=== PATIENT | female | born 1955 | race Caucasian/White ===

== ENCOUNTER 2017-02-21 18:00 | Inpatient (IN) | payer MEDICAID ==
[2017-02-21 18:28] LABS: Hematocrit 46.9 % (30.3-42.9); Hemoglobin 15.1 gm/dl (10.1-14.3); Mean Corpuscular HGB Conc 32 % (30-34); Mean Corpuscular Hemoglobin 29 pg (28-32); Mean Corpuscular Volume 89 fl (79-97); Platelet Count 342 K/mm3 (140-440); Red Blood Count 5.27 M/mm3 (3.65-5.03); Red Cell Distribution Width 16.2 % (13.2-15.2); White Blood Count 14.5 K/mm3 (4.5-11.0)
--- NOTE | 2017-02-21 18:34 | Emergency Department Report ---
HPI - General Chief Complaint: Altered Mental Status Time Seen by Provider: 02/21/17 18:25 - HPI HPI: 61-year-old Afro-[place]ux[place]bour[place] female with a history of schizophrenia, Parkinson's and dementia presents to the emergency department after being found unresponsive at [facility]. The patient apparently left her personal skilled nursing along with a walker and 2 large bags and walked [facility]. The patient allegedly was ambulatory, jovial and social with the workers at [facility]. She ordered her food and ate and then all of a sudden about 1.5 hours ago she was found face down unresponsive at her table. She is currently sitting there with eyes open but is nonverbal and nonresponsive to verbal stimuli or any cues. She did not receive anything for symptoms in route. ED Past Medical Hx - Past Medical History Hx Psychiatric Treatment: Yes Hx Dementia: Yes Additional medical history: parkinsons - Surgical History Past Surgical History?: Yes Hx Breast Surgery: Yes (right mastectomy) Additional Surgical History: bladimir - Social History Smoking Status: Unknown if ever smoked ED Review of Systems ROS: Stated complaint: AMS Other details as noted in HPI Comment: Unobtainable due to pts medical conditions Physical Exam - Physical Exam Physical Exam: GENERAL: The patient is well-developed well-nourished. HEENT: Normocephalic. Atraumatic. Pupils equal reactive to light bilaterally. Patient does not display any extraocular motion and is not tracking. Patient has moist mucous membranes. NECK: Supple. Trachea is midline. CHEST/LUNGS: Clear to auscultation. There is no respiratory distress noted. HEART/CARDIOVASCULAR: Regular. There is no tachycardia. There is no gallop rub or murmur. ABDOMEN: Abdomen is soft, nontender. Patient has normal bowel sounds. There is no abdominal distention. SKIN: Skin is warm and dry. NEURO: The patient is awake with her eyes spontaneously open but she is nonverbal and noncooperative. She does not follow any verbal commands or acute. Patient seen spontaneously moving her extremities. No obvious lateralization. She does withdraw from painful stimuli. MUSCULOSKELETAL: There is no tenderness or deformity. Radial pulse was 2 over 4 bilaterally. Cap refill less than 2 seconds. There is no evidence of acute injury. ED Course - Consultations Consultation #1: I spoke with the telemedicine neurologist, Dr. Lay, regarding the patient's altered mental status and possible strokelike symptoms. He saw the patient in the room via telemedicine monitor and called back. He feels that the patient has more encephalopathic symptoms then she does lateralizing stroke symptoms. He would recommend a CT angiography of the head and neck but due to her renal insufficiency recommends admission and MRA without contrast. He does not feel that the patient is a TPA candidate. 02/21/17 19:29 02/21/17 19:31 - ABG Interpretation Ph: [phone] PCO2: 23 PO2: 57 Bicarbonate: 15 Interpretation: other (low bicarbonate and hypoxia) ED Medical Decision Making - Lab Data Result diagrams: 02/21/17 18:12 02/21/17 18:30 - EKG Data -: EKG Interpreted by Me EKG shows normal: sinus rhythm (junctional rhythm), axis (left axis deviation), intervals, QRS complexes (LVH, Q waves to the anterior and inferior leads), ST- T waves Rate: normal - EKG Data When compared to previous EKG there are: previous EKG unavailable Interpretation: other (social rhythm, left axis deviation, 88 bpm, left ventricular hypertrophy, Q waves inferior and anterior leads) - Radiology Data Radiology results: report reviewed, image reviewed interpreted by me: Chest x-ray did not show any acute process. No effusions. No pneumothorax. No signs of pneumonia seen. PROCEDURE: CT HEAD/BRAIN WO CON TECHNIQUE: Computerized tomography of the head was performed without contrast material. HISTORY: AMS COMPARISON: No prior studies are available for comparison. FINDINGS: Skull and scalp: Hyperostosis frontalis internus Paranasal sinuses: Hypoplastic right maxillary sinus. Ventricles and subarachnoid spaces: Normal. Cerebrum: On images 35-38 there is questionable effacement of sulcal spaces and haziness or indistinctness of the joya white junctions high right temporal into the parietal lobe asymmetric to the left side such as image 36 could reflect region of acute or hyperacute ischemic change. Followup MRI is advised.. No acute intracranial bleed. Mild diffuse atrophy with mild periventricular microischemic change and with suspected central lacunar infarct disease. Cerebellum and brainstem: No evidence of hemorrhage, acute infarction or mass. Vasculature: Mild fairly symmetric atherosclerosis of the bilateral MCA branch vessels at the M1 and M2 levels with nonspecific asymmetric moderate increased density appearance of the right sylvian MCA branch involving the M3 segment. This is indeterminate to exclude regional partially hyperdense hyperdense MCA sign images 22 through 24. Followup MRI with MRA may be of use to further evaluate. Comments: Focal upper parafalcine dural calcification. No prior CT head on file or submitted on PACs for this 61-year-old female IMPRESSION: Rule-out partial hyperdense MCA sign right at the right M3 segment. Consider partial peripheral MCA thrombus versus asymmetric and fortuitous atherosclerotic prominence. Followup MRA is advised Rule-out subtle acute or hyperacute ischemic changes of the distal right middle cerebral artery distribution as above. Followup MRI is advised - Medical Decision Making 61-year-old female presents the emergency department after being found unresponsive at [facility]. However since the patient was previously verbal and ambulatory at [facility], when the patient arrived to the emergency department I called a code stroke. CT of the head was done stat that showed a hyperdense MCA segment and rule out subtle acute or hyperacute ischemic changes. The telemedicine neurologist was consult and saw the patient in her room via the monitor and called back and says that the patient does not appear to be a TPA candidate and that she is more encephalopathic then lateralizing CVA symptoms. Labs show a elevated lactic acidosis, some renal insufficiency, leukocytosis and an ABG that shows some decreased bicarbonate level and some hypoxia. Originally the neurologist had recommended a CT angiography of the head and neck but once he understood the patient's renal insufficiency he recommended admitting the patient for a follow-up MRA/MRI. Patient was reevaluated multiple times over multiple hours in the emergency department and she started showing improvements. She was seen awake and verbal trying to talk with her daughter but even the daughter agreed that there was something off in her speech and demeanor. Patient was already going to be admitted at this point but the improvement once again shows that the patient was most likely not a TPA candidate. Patient accepted for admission by the hospitalist, Dr. Blanton. - Differential Diagnosis CVA, encephalopathy, DKA, hypertensive crisis Critical Care Time: No Critical care attestation.: If time is entered above; I have spent that time in minutes in the direct care of this critically ill patient, excluding procedure time. ED Disposition Clinical Impression: Encephalopathy, Lactic acidosis, Hyperglycemia Altered mental status Qualifiers: Altered mental status type: transient alteration of awareness Qualified Code(s) : R40.4 - Transient alteration of awareness Hypertension Qualifiers: Hypertension type: essential hypertension Qualified Code(s): I10 - Essential ( primary) hypertension Disposition: DC-09 OP ADMIT IP TO THIS HOSP Is pt being admited?: Yes Condition: Fair Time of Disposition: 20:31
[2017-02-21 19:07] LABS: Albumin 4.4 g/dL (3.9-5); Albumin/Globulin Ratio 1.2 %; BUN/Creatinine Ratio 11.42; Bilirubin,Total 0.5 mg/dL (0.1-1.2); Calcium 10.4 mg/dL (8.4-10.2); Chloride 102.5 mmol/L (98-107); Magnesium 2.3 mg/dL (1.7-2.3); Potassium 5.1 mmol/L (3.6-5.0)
--- NOTE | 2017-02-21 19:09 | Cat Scan Report ---
FINAL REPORT PROCEDURE: CT HEAD/BRAIN WO CON TECHNIQUE: Computerized tomography of the head was performed without contrast material. HISTORY: AMS COMPARISON: No prior studies are available for comparison. FINDINGS: Skull and scalp: Hyperostosis frontalis internus Paranasal sinuses: Hypoplastic right maxillary sinus. Ventricles and subarachnoid spaces: Normal. Cerebrum: On images 35-38 there is questionable effacement of sulcal spaces and haziness or indistinctness of the joya white junctions high right temporal into the parietal lobe asymmetric to the left side such as image 36 could reflect region of acute or hyperacute ischemic change. Followup MRI is advised.. No acute intracranial bleed. Mild diffuse atrophy with mild periventricular microischemic change and with suspected central lacunar infarct disease. Cerebellum and brainstem: No evidence of hemorrhage, acute infarction or mass. Vasculature: Mild fairly symmetric atherosclerosis of the bilateral MCA branch vessels at the M1 and M2 levels with nonspecific asymmetric moderate increased density appearance of the right sylvian MCA branch involving the M3 segment. This is indeterminate to exclude regional partially hyperdense hyperdense MCA sign images 22 through 24. Followup MRI with MRA may be of use to further evaluate. Comments: Focal upper parafalcine dural calcification. No prior CT head on file or submitted on PACs for this 61-year-old female IMPRESSION: Rule-out partial hyperdense MCA sign right at the right M3 segment. Consider partial peripheral MCA thrombus versus asymmetric and fortuitous atherosclerotic prominence. Followup MRA is advised Rule-out subtle acute or hyperacute ischemic changes of the distal right middle cerebral artery distribution as above. Followup MRI is advised Followup MRI and MRA as above is advised if not contraindicated Full details above
[2017-02-21 19:11] LABS: INR 1.04 (0.87-1.13)
[2017-02-21 19:12] LABS: Partial Thromboplastin Time 32.7 Sec. (24.2-36.6)
[2017-02-21 19:17] LABS: Basophils % (Manual) 0 % (0.0-1.8); Blastocytes % (Manual) 0 %; Diff Status Complete; Eosinophils % (Manual) 0 % (0.0-4.3); RBC Morphology Normal
[2017-02-21] MEDS ORDERED: NORMODYNE IV ONE (19:30)
[2017-02-21 19:39] LABS: ISTAT Base Excess -9; ISTAT HCO3 15.3; ISTAT PCO2 23.5 (35-45); ISTAT PH 7.422 (7.35-7.45); ISTAT PO2 57 (80-105); ISTAT SO2 91; ISTAT TCO2 16
[2017-02-21] MEDS ORDERED: DILAUDID IV PRN (21:37)
[2017-02-21] MEDS ORDERED: PERCOCET 5/325 PO PRN (21:37)
[2017-02-21] MEDS ORDERED: MILK OF MAGNESIA PO PRN (21:37)
[2017-02-21] MEDS ORDERED: DULCOLAX PR PRN (21:37)
[2017-02-21] MEDS ORDERED: ZOFRAN IV PRN (21:37)
--- NOTE | 2017-02-21 21:37 | History and Physical Report ---
History of Present Illness Date of examination: 02/21/17 Date of admission: 02/21/17 20:31 Chief complaint: Unresponsive for 1 hr History of present illness: RICHIE: 61-year-old Afro-Irish female with a history of schizophrenia, Parkinson's and dementia presents to the emergency department after being found unresponsive at [facility]. The patient apparently left her personal jail along with a walker and 2 large bags and walked [facility]. The patient allegedly was ambulatory, jovial and social with the workers at [facility]. She ordered her food and ate and then all of a sudden about 1.5 hours ago she was found face down unresponsive at her table. She is currently sitting there with eyes open but is nonverbal and nonresponsive to verbal stimuli or any cues. She did not receive anything for symptoms in route. Past Medical History Hx Psychiatric Treatment: Yes Hx Dementia: Yes Additional medical history: parkinsons - Surgical History Past Surgical History?: Yes Hx Breast Surgery: Yes (right mastectomy) Additional Surgical History: bladimir - Social History Smoking Status: Unknown if ever smoked Review of Systems Stated complaint: AMS Unobtainable due to pts medical conditions Medications and Allergies Allergies Allergy/AdvReac Type Severity Reaction Status Date / Time morphine Allergy Unknown Verified 02/21/17 18:06 Active Meds: Active Medications Heparin Sodium (Porcine) (Heparin) 5,000 unit SUB-Q Q8HR HATTIE Exam - Physical Exam Narrative exam: Lying in bed and staring at the ceiling - Constitutional Vitals: Temp Pulse Resp BP Pulse Ox 98.3 F 66 12 126/79 99 02/21/17 18:56 02/21/17 21:15 02/21/17 21:15 02/21/17 21:15 02/21/17 21:15 General appearance: Present: no acute distress, well-nourished - EENT Eyes: Present: PERRL ENT: hearing intact, clear oral mucosa - Neck Neck: Present: supple, normal ROM - Respiratory Respiratory effort: normal Respiratory: bilateral: CTA - Cardiovascular Heart rate: 80 Rhythm: regular Heart Sounds: Present: S1 & S2. Absent: rub, click - Extremities Extremities: no ischemia, pulses intact, pulses symmetrical, No edema Peripheral Pulses: within normal limits - Abdominal General gastrointestinal: Present: soft, non-tender, non-distended, normal bowel sounds Female genitourinary: Present: normal - Rectal Rectal Exam: deferred - Integumentary Integumentary: Present: clear, warm, dry - Musculoskeletal Musculoskeletal: strength equal bilaterally, generalized weakness - Psychiatric Psychiatric: appropriate mood/affect, intact judgment & insight - Neurologic Neurologic: CNII-XII intact, moves all extremities, other (Non verbal buut alert and able to pull herself in bed) Results - Labs CBC & Chem 7: 02/22/17 03:39 02/22/17 03:39 Labs: Laboratory Last Values WBC 14.5 K/mm3 (4.5-11.0) H 02/21/17 18:12 RBC 5.27 M/mm3 (3.65-5.03) H 02/21/17 18:12 Hgb 15.1 gm/dl (10.1-14.3) H 02/21/17 18:12 Hct 46.9 % (30.3-42.9) H 02/21/17 18:12 MCV 89 fl (79-97) 02/21/17 18:12 MCH 29 pg (28-32) 02/21/17 18:12 MCHC 32 % (30-34) 02/21/17 18:12 RDW 16.2 % (13.2-15.2) H 02/21/17 18:12 Plt Count 342 K/mm3 (140-440) 02/21/17 18:12 Lymph # Auto Inspector 02/21/17 18:12 Add Manual Diff Complete 02/21/17 18:12 Total Counted 100 02/21/17 18:12 Seg Neuts % (Manual) 57.0 % (40.0-70.0) 02/21/17 18:12 Band Neutrophils % 0 % 02/21/17 18:12 Lymphocytes % (Manual) 33.0 % (13.4-35.0) 02/21/17 18:12 Reactive Lymphs % (Man) 0 % 02/21/17 18:12 Monocytes % (Manual) 10.0 % (0.0-7.3) H 02/21/17 18:12 Eosinophils % (Manual) 0 % (0.0-4.3) 02/21/17 18:12 Basophils % (Manual) 0 % (0.0-1.8) 02/21/17 18:12 Metamyelocytes % 0 % 02/21/17 18:12 Myelocytes % 0 % 02/21/17 18:12 Promyelocytes % 0 % 02/21/17 18:12 Blast Cells % 0 % 02/21/17 18:12 Nucleated RBC % Not Reportable 02/21/17 18:12 Seg Neutrophils # Man 8.3 K/mm3 (1.8-7.7) H 02/21/17 18:12 Band Neutrophils # 0.0 K/mm3 02/21/17 18:12 Lymphocytes # (Manual) 4.8 K/mm3 (1.2-5.4) 02/21/17 18:12 Abs React Lymphs (Man) 0.0 K/mm3 02/21/17 18:12 Monocytes # (Manual) 1.5 K/mm3 (0.0-0.8) H 02/21/17 18:12 Eosinophils # (Manual) 0.0 K/mm3 (0.0-0.4) 02/21/17 18:12 Basophils # (Manual) 0.0 K/mm3 (0.0-0.1) 02/21/17 18:12 Metamyelocytes # 0.0 K/mm3 02/21/17 18:12 Myelocytes # 0.0 K/mm3 02/21/17 18:12 Promyelocytes # 0.0 K/mm3 02/21/17 18:12 Blast Cells # 0.0 K/mm3 02/21/17 18:12 WBC Morphology Not Reportable 02/21/17 18:12 Hypersegmented Neuts Not Reportable 02/21/17 18:12 Hyposegmented Neuts Not Reportable 02/21/17 18:12 Hypogranular Neuts Not Reportable 02/21/17 18:12 Smudge Cells Not Reportable 02/21/17 18:12 Toxic Granulation Not Reportable 02/21/17 18:12 Toxic Vacuolation Not Reportable 02/21/17 18:12 Dohle Bodies Not Reportable 02/21/17 18:12 Pelger-Huet Anomaly Not Reportable 02/21/17 18:12 Zoran Rods Not Reportable 02/21/17 18:12 Platelet Estimate Appears normal 02/21/17 18:12 Clumped Platelets Not Reportable 02/21/17 18:12 Plt Clumps, EDTA Not Reportable 02/21/17 18:12 Large Platelets Not Reportable 02/21/17 18:12 Giant Platelets Not Reportable 02/21/17 18:12 Platelet Satelliting Not Reportable 02/21/17 18:12 Plt Morphology Comment Not Reportable 02/21/17 18:12 RBC Morphology Normal 02/21/17 18:12 Dimorphic RBCs Not Reportable 02/21/17 18:12 Polychromasia Not Reportable 02/21/17 18:12 Hypochromasia Not Reportable 02/21/17 18:12 Poikilocytosis Not Reportable 02/21/17 18:12 Anisocytosis Not Reportable 02/21/17 18:12 Microcytosis Not Reportable 02/21/17 18:12 Macrocytosis Not Reportable 02/21/17 18:12 Spherocytes Not Reportable 02/21/17 18:12 Pappenheimer Bodies Not Reportable 02/21/17 18:12 Sickle Cells Not Reportable 02/21/17 18:12 Target Cells Not Reportable 02/21/17 18:12 Tear Drop Cells Not Reportable 02/21/17 18:12 Ovalocytes Not Reportable 02/21/17 18:12 Helmet Cells Not Reportable 02/21/17 18:12 [place] Bodies Not Reportable 02/21/17 18:12 [place] Rings Not Reportable 02/21/17 18:12 Salome Cells Not Reportable 02/21/17 18:12 Bite Cells Not Reportable 02/21/17 18:12 Crenated Cell Not Reportable 02/21/17 18:12 Elliptocytes Not Reportable 02/21/17 18:12 Acanthocytes (Spur) Not Reportable 02/21/17 18:12 Rouleaux Not Reportable 02/21/17 18:12 Hemoglobin C Crystals Not Reportable 02/21/17 18:12 Schistocytes Not Reportable 02/21/17 18:12 Malaria parasites Not Reportable 02/21/17 18:12 Richard Bodies Not Reportable 02/21/17 18:12 Hem Pathologist Commnt No 02/21/17 18:12 PT 13.5 Sec. (12.2-14.9) 02/21/17 18:30 INR 1.04 (0.87-1.13) 02/21/17 18:30 APTT 32.7 Sec. (24.2-36.6) 02/21/17 18:30 POC ABG pH 7.422 (7.35-7.45) 02/21/17 19:29 POC ABG pCO2 23.5 (35-45) L 02/21/17 19:29 POC ABG pO2 57 (80-105) L 02/21/17 19:29 POC ABG HCO3 15.3 02/21/17 19:29 POC ABG Total CO2 16 02/21/17 19:29 POC ABG O2 Sat 91 02/21/17 19:29 POC ABG Base Excess -9 02/21/17 19:29 FiO2 32 % 02/21/17 19:29 Sodium 142 mmol/L (137-145) 02/21/17 18:30 Potassium 5.1 mmol/L (3.6-5.0) H 02/21/17 18:30 Chloride 102.5 mmol/L (98-107) 02/21/17 18:30 Carbon Dioxide 19 mmol/L (22-30) L 02/21/17 18:30 Anion Gap 26 mmol/L 02/21/17 18:30 BUN 16 mg/dL (7-17) 02/21/17 18:30 Creatinine 1.4 mg/dL (0.7-1.2) H 02/21/17 18:30 Estimated GFR 38 ml/min 02/21/17 18:30 BUN/Creatinine Ratio 11.42 % 02/21/17 18:30 Glucose 273 mg/dL (65-100) H 02/21/17 18:30 POC Glucose 334 (70-105) H 02/21/17 19:15 Lactic Acid 5.20 mmol/L (0.7-2.0) H* 02/21/17 19:36 Calcium 10.4 mg/dL (8.4-10.2) H 02/21/17 18:30 Magnesium 2.30 mg/dL (1.7-2.3) 02/21/17 18:30 Total Bilirubin 0.50 mg/dL (0.1-1.2) 02/21/17 18:30 AST 23 units/L (5-40) 02/21/17 18:30 ALT 24 units/L (7-56) 02/21/17 18:30 Alkaline Phosphatase 122 units/L (35-129) 02/21/17 18:30 Ammonia 60.0 umol/L (25-60) 02/21/17 18:30 Total Creatine Kinase 119 units/L (30-135) 02/21/17 19:36 Total Protein 8.0 g/dL (6.3-8.2) 02/21/17 18:30 Albumin 4.4 g/dL (3.9-5) 02/21/17 18:30 Albumin/Globulin Ratio 1.2 % 02/21/17 18:30 TSH 4.100 mlU/mL (0.270-4.200) 02/21/17 18:30 Salicylates < 0.3 mg/dL (2.8-20.0) L 02/21/17 18:12 Acetaminophen < 15.0 ug/mL (10.0-30.0) 02/21/17 18:12 Plasma/Serum Alcohol < 0.01 gm% (0-0.07) 02/21/17 18:12 - Imaging and Cardiology EKG: report reviewed CT Scan - head: report reviewed (Rule out partial hyperdense MCA sign right M3 segment.Consider partial peripheral MCA thrombus versus asymmetric and fortuitous atherosclerotic prominence.Rule out subtle acute or hyperacute changes Rt MCAdistribution) Assessment and Plan Advance Directives: Yes (Full code) VTE prophylaxis?: Chemical Plan of care discussed with patient/family: No - Patient Problems (1) Encephalopathy Current Visit: Yes Status: Acute Plan to address problem: Etio unclear.ACute CVA versus sepsis.Able to move all 4 extremities.Will Get MRI and MRA b/c of abnormal CT Head .Empiric ABx in the form of Rocephin b/c of better Blood brain barrier penetration.DDX -I would consider meningitis as a possibility (2) Acidosis, lactic Current Visit: Yes Status: Acute Plan to address problem: Iv Rocephin for now For possible meningitis (3) CVA (cerebral vascular accident) Current Visit: Yes Status: Acute Qualifiers: CVA mechanism: thrombosis Precerebral and cerebral artery: middle cerebral artery Laterality of affected vessel: L Plan to address problem: Unlikely but w/u for CVA ordered in the form of MRI/MRA/CDS/ECHO.Also Neuro consult ordered (4) Sepsis Current Visit: Yes Status: Acute Qualifiers: Sepsis type: sepsis due to unspecified organism Qualified Code(s): A41.9 - Sepsis, unspecified organism Plan to address problem: A possiibility.Rocephin ordered (5) MARIBEL (acute kidney injury) Current Visit: Yes Status: Acute Plan to address problem: Her baseline creatinine is not known.IV fluids for time being (6) Transaminitis Current Visit: Yes Status: Acute Plan to address problem: Ischemic??Hepatitis profile ordered. (7) DVT prophylaxis Current Visit: Yes Status: Acute Plan to address problem: On Lovenox
[2017-02-21] MEDS ORDERED: SODIUM CHLORIDE FLUSH SYRINGE 10 ML IV PRN (21:39)
[2017-02-21] MEDS ORDERED: NACL 0.9% 1000 ML 1,000 ML IV SCH (22:00)
[2017-02-22] MEDS: PEPCID PO SCH ×3 (01:00→22:36)
[2017-02-22] MEDS: ZOCOR PO SCH ×2 (01:00→22:36)
[2017-02-22] MEDS: HEPARIN SUB-Q SCH ×3 (01:02→22:36)
[2017-02-22 05:05] LABS: Eosinophils % (Auto) 0.1 % (0.0-4.3); Hematocrit 45.5 % (30.3-42.9); Hemoglobin 14.4 gm/dl (10.1-14.3); Mean Corpuscular HGB Conc 32 % (30-34); Mean Corpuscular Hemoglobin 29 pg (28-32); Mean Corpuscular Volume 90 fl (79-97); Platelet Count 150 K/mm3 (140-440); Red Blood Count 5.03 M/mm3 (3.65-5.03); Red Cell Distribution Width 16.5 % (13.2-15.2); White Blood Count 17.3 K/mm3 (4.5-11.0)
[2017-02-22 05:41] LABS: Albumin 3.9 g/dL (3.9-5); BUN/Creatinine Ratio 11.9; Bilirubin,Total 0.5 mg/dL (0.1-1.2); Calcium 9.8 mg/dL (8.4-10.2); Chloride 100.9 mmol/L (98-107); Potassium 5.1 mmol/L (3.6-5.0); Total Protein 7.8 g/dL (6.3-8.2)
--- NOTE | 2017-02-22 07:29 | XRay Report ---
Single view chest: History: AMS. Findings: Cardiomegaly. Trachea is midline. No consolidation, pneumothorax or pleural effusion. Impression: Cardiomegaly. No acute lung changes.
--- NOTE | 2017-02-22 10:18 | Consultation ---
History of Present Illness - Reason for Consult Consult date: 02/22/17 acute renal failure, hyperkalemia - History of Present Illness Patient is a 61-year-old AAF with a history of Schizophrenia, Parkinson's and Dementia presented to the emergency department after found unresponsive at [facility]. Unable to obtain any good history from patient due to confusion. Apparently patient walked to [facility] from her personal half-way along with a walker and 2 large bags. The patient allegedly was ambulatory, jovial and social with the workers at [facility]. She ate the food she ordered and later found face down unresponsive at her table. No documented hypotension. Her initial creatinine was 1.4 but has increased to 21. today with potassium of 5.1. Baseline creatinine is not available. Past History Past Medical History: other (Dementia, parkinsons) Medications and Allergies Allergies Allergy/AdvReac Type Severity Reaction Status Date / Time morphine Allergy Unknown Verified 02/21/17 18:06 Active Meds: Active Medications Acetaminophen (Tylenol) 650 mg PO Q4H PRN PRN Reason: Pain MILD(1-3)/Fever >100.5/COSTA Bisacodyl (Dulcolax) 10 mg [place] QDAY PRN PRN Reason: Constipation unrelieved by MOM Famotidine (Pepcid) 20 mg PO BID [facility] Last Admin: 02/22/17 01:00 Dose: 20 mg Heparin Sodium (Porcine) (Heparin) 5,000 unit SUB-Q Q8HR [facility] Last Admin: 02/22/17 07:02 Dose: 5,000 unit Hydromorphone HCl (Dilaudid) 0.5 mg IV Q3H PRN PRN Reason: Pain , Severe (7-10) Last Admin: 02/22/17 01:07 Dose: 0.5 mg Ceftriaxone Sodium (Rocephin/Ns 2 Gm/100 Ml) 2 gm in 100 mls @ 200 mls/hr IV Q24HR HATTIE PRN Reason: Protocol Dextrose/Sodium Chloride (D5ns) 1,000 mls @ 100 mls/hr IV DIRECT HATTIE Magnesium Hydroxide (Milk Of Magnesia) 30 ml PO Q4H PRN PRN Reason: Constipation Ondansetron HCl (Zofran) 4 mg IV Q8H PRN PRN Reason: N/V unrelieved by Reglan Oxycodone/Acetaminophen (Percocet 5/325) 1 tab PO Q6H PRN PRN Reason: Pain, Moderate (4-6) Simvastatin (Zocor) 20 mg PO QHS HATTIE Last Admin: 02/22/17 01:00 Dose: 20 mg Sodium Chloride (Sodium Chloride Flush Syringe 10 Ml) 10 ml IV PRN PRN PRN Reason: LINE FLUSH Review of Systems ROS unobtainable: due to mental status Exam - Vital Signs Vital signs: Vital Signs Pulse Resp BP Pulse Ox 76 22 168/113 99 02/21/17 18:32 02/21/17 18:32 02/21/17 18:32 02/21/17 18:32 - General Appearance General appearance: well-developed, well-nourished, appears stated age, obese, other (in restrains, no distress) EENT: ATNC, PERRL, mucous membranes dry, hearing intact Neck: Present: neck supple, trachea midline Respiratory: Clear to Ascultation Heart: regular, S1S2, no murmurs Gastrointestinal: Present: normoactive bowel sounds, obese. Absent: tenderness , distended Integumentary: no rash Neurologic: no focal deficit, confused, disoriented Musculoskeletal: Present: other (no edema) Psychiatric: cooperative Results - Lab Results 02/22/17 03:39 02/22/17 03:39 Most recent lab results Calcium 9.8 mg/dL (8.4-10.2) 02/22/17 03:39 Magnesium 2.30 mg/dL (1.7-2.3) 02/21/17 18:30 - Image Kidney/bladder ultrasound: pending Assessment and Plan - Patient Problems (1) MARIBEL (acute kidney injury) Current Visit: Yes Status: Acute Plan to address problem: MARIBEL likely hemodynamically mediated in the setting of volume depletion and ? sepsis. Continue IV fluids. Urine studies and Renal US ordered. (2) Hyperkalemia Current Visit: Yes Status: Acute Plan to address problem: Mild hyperkalemia secondary to MARIBEL. Kayexalate. (3) Acidosis, lactic Current Visit: Yes Status: Acute (4) Encephalopathy Current Visit: Yes Status: Acute (5) Elevated liver enzymes Current Visit: Yes Status: Acute (6) Hyperglycemia Current Visit: Yes Status: Acute
[2017-02-22] MEDS: D5NS 1,000 ML IV SCH (10:43)
[2017-02-22] MEDS: TYLENOL PO PRN ×2 (10:50→23:22)
[2017-02-22] MEDS ORDERED: KIONEX PO ONE (11:00)
--- NOTE | 2017-02-22 11:22 | Admit Criteria Form ---
Admission Criteria Documentation: MENTAL STATUS CHANGE Clinical Indications for Inpatient Care (Place 'X' for any and all applicable criteria): Ongoing inpatient care may be needed for 1 or more of the following(1)(2)(3)(5)( 6): [X ]I. Suspected serious etiology (eg, medical disorder, ELECTRONIC LAB TECHNICIAN event) of altered mental status [ ]II. Danger to self or others not manageable at lower level of care [ ]III. Grave disability (eg, inability to perform self care necessary at lower level of care) [ ]IV. Agitation or inappropriate behavior interfering with care for primary condition (eg, attempting to discontinue lines or drains prematurely, unable to cooperate with respiratory care) [ ]V. Delirium [A] [D][E] as described by 1 or more of the following(26): [ ]a) Delirium due to alcohol or sedative [F] withdrawal [ ]b) Delirium of uncertain etiology that has not responded to appropriate empiric treatment [ ]c) Delirium that prevents performance of a life-sustaining function (eg, feeding or hydrating oneself) [X ]. General contraindications and/or Inappropriate clinical situations for Observational Care in patients with Mental Status Change, when ANY ONE of the following is required: [ X]a) Prediction of prolongation of LOS based on ANY ONE of the following may be considered as a contraindication for observational care 2, 3, 4, 5, 6, 7, 8, 9, 10, 11 [ ]i) Age > 65 yrs. [X ]ii) Patient arriving by ambulance [ ]iii) Patient with high acuity [ ]iv) Patient requiring vital sign monitoring [ ]v) Patient on IV medication [ ]b) Systolic blood pressures greater than or equal to 180mmHg 3, 12 [ ]c) Patient with altered mental status including delirium and other alteration of consciousness, (3) [ ]d) Patient whose discharge disposition will be to a group home home or rehabilitation home should not be managed in Emergency Department Observation Unit. CMS rule requires 3 days hospital stay before such placement.3,13 [ ]e) Patient with failure to thrive due to broad array of etiologies 3,16,17 [ ]f) Inability to ambulate 3,14 Extended stay beyond goal length of stay for the primary condition may be needed until ALL of the following are present(3)(5): [ ]a) Underlying medical etiology of mental status change is absent, or has been established and adequately treated [ ]b) Danger to self or others is absent or manageable at lower level of care. [ ]c) Behavior crisis management, including physical or chemical restraints, is not required or available at lower level of car [ ]d) Substance or alcohol withdrawal is absent or manageable at lower level of care. [ ]e) Behavioral symptoms (eg, agitation, somnolence, inappropriate behavior) are absent, or are manageable at lower level of care. The original [facility] [employer] content created by [facility] has been revised. The portions of the content which have been revised are identified through the use of italic text or in bold, and [facility] has neither reviewed nor approved the modified material. All other unmodified content is copyright [facility]. Please see references footnoted in the original [facility] edition 2016 Admission Criteria Met: Yes
--- NOTE | 2017-02-22 11:42 | Event Note ---
Date: 02/22/17 I attempted to see this patient between my scheduled coverage time of 8 AM-12 PM but they were not present in the floor room. I will return to staff in consultation ..
--- NOTE | 2017-02-22 11:58 | Progress Note ---
Assessment and Plan Assessment and plan: Sepsis. Patient with elevated lactic acid of 5.2 and significant leukocytosis greater than 17,000. Patient will be maintained on the sepsis pathway and continue to trend lactic acid levels. Follow-up blood, urine and sputum cultures. Acute encephalopathy. Etiology likely secondary to toxic metabolic +/- cva. Continue to treat underlying cause. Acute CVA. Patient reports left lower extremity weakness. CT scan of the head is negative. Follow-up MRI/MRA. Neurology consultation pending. Metabolic acidosis. Lactic acidosis as above. Acute renal failure. Baseline creatinine is unknown. Etiology likely secondary to acute kidney injury from #1. Nephrology following. Follow-up urine studies and renal ultrasound. Elevated LFTs. Etiology likely secondary to ischemic hepatitis from #1. Monitor closely. Consider ultrasound and hepatitis panel if no improvement. DVT prophylaxis. Continue Lovenox. History Interval history: Patient still remains confused but improved. Patient believes she is at [facility]. Hospitalist Physical - Constitutional Vitals: Temp Pulse Resp BP Pulse Ox 97.8 F 63 16 140/85 98 02/22/17 10:16 02/22/17 10:16 02/22/17 10:16 02/22/17 10:16 02/22/17 10:16 General appearance: Present: no acute distress, well-nourished - EENT Eyes: Present: PERRL, EOM intact ENT: hearing intact, clear oral mucosa, dentition normal - Neck Neck: Present: supple, normal ROM - Respiratory Respiratory effort: normal Respiratory: bilateral: CTA - Cardiovascular Rhythm: regular Heart Sounds: Present: S1 & S2. Absent: gallop, rub - Extremities Extremities: no ischemia, No edema, Full ROM - Abdominal General gastrointestinal: soft, non-tender, non-distended, normal bowel sounds - Integumentary Integumentary: Present: clear, warm, dry - Neurologic Neurologic: CNII-XII intact, moves all extremities Results - Labs CBC & Chem 7: 02/22/17 03:39 02/22/17 03:39 Labs: Laboratory Last Values WBC 17.3 K/mm3 (4.5-11.0) H 02/22/17 03:39 RBC 5.03 M/mm3 (3.65-5.03) 02/22/17 03:39 Hgb 14.4 gm/dl (10.1-14.3) H 02/22/17 03:39 Hct 45.5 % (30.3-42.9) H 02/22/17 03:39 MCV 90 fl (79-97) 02/22/17 03:39 MCH 29 pg (28-32) 02/22/17 03:39 MCHC 32 % (30-34) 02/22/17 03:39 RDW 16.5 % (13.2-15.2) H 02/22/17 03:39 Plt Count 150 K/mm3 (140-440) 02/22/17 03:39 Lymph % (Auto) 11.9 % (13.4-35.0) L 02/22/17 03:39 [place] % (Auto) 5.3 % (0.0-7.3) 02/22/17 03:39 Eos % (Auto) 0.1 % (0.0-4.3) 02/22/17 03:39 Baso % (Auto) 0.0 % (0.0-1.8) 02/22/17 03:39 Lymph # 2.1 K/mm3 (1.2-5.4) 02/22/17 03:39 [place] # 0.9 K/mm3 (0.0-0.8) H 02/22/17 03:39 Eos # 0.0 K/mm3 (0.0-0.4) 02/22/17 03:39 Baso # 0.0 K/mm3 (0.0-0.1) 02/22/17 03:39 Add Manual Diff Complete 02/21/17 18:12 Total Counted 100 02/21/17 18:12 Seg Neutrophils % 82.7 % (40.0-70.0) H 02/22/17 03:39 Seg Neuts % (Manual) 57.0 % (40.0-70.0) 02/21/17 18:12 Band Neutrophils % 0 % 02/21/17 18:12 Lymphocytes % (Manual) 33.0 % (13.4-35.0) 02/21/17 18:12 Reactive Lymphs % (Man) 0 % 02/21/17 18:12 Monocytes % (Manual) 10.0 % (0.0-7.3) H 02/21/17 18:12 Eosinophils % (Manual) 0 % (0.0-4.3) 02/21/17 18:12 Basophils % (Manual) 0 % (0.0-1.8) 02/21/17 18:12 Metamyelocytes % 0 % 02/21/17 18:12 Myelocytes % 0 % 02/21/17 18:12 Promyelocytes % 0 % 02/21/17 18:12 Blast Cells % 0 % 02/21/17 18:12 Nucleated RBC % Not Reportable 02/21/17 18:12 Seg Neutrophils # 14.3 K/mm3 (1.8-7.7) H 02/22/17 03:39 Seg Neutrophils # Man 8.3 K/mm3 (1.8-7.7) H 02/21/17 18:12 Band Neutrophils # 0.0 K/mm3 02/21/17 18:12 Lymphocytes # (Manual) 4.8 K/mm3 (1.2-5.4) 02/21/17 18:12 Abs React Lymphs (Man) 0.0 K/mm3 02/21/17 18:12 Monocytes # (Manual) 1.5 K/mm3 (0.0-0.8) H 02/21/17 18:12 Eosinophils # (Manual) 0.0 K/mm3 (0.0-0.4) 02/21/17 18:12 Basophils # (Manual) 0.0 K/mm3 (0.0-0.1) 02/21/17 18:12 Metamyelocytes # 0.0 K/mm3 02/21/17 18:12 Myelocytes # 0.0 K/mm3 02/21/17 18:12 Promyelocytes # 0.0 K/mm3 02/21/17 18:12 Blast Cells # 0.0 K/mm3 02/21/17 18:12 WBC Morphology Not Reportable 02/21/17 18:12 Hypersegmented Neuts Not Reportable 02/21/17 18:12 Hyposegmented Neuts Not Reportable 02/21/17 18:12 Hypogranular Neuts Not Reportable 02/21/17 18:12 Smudge Cells Not Reportable 02/21/17 18:12 Toxic Granulation Not Reportable 02/21/17 18:12 Toxic Vacuolation Not Reportable 02/21/17 18:12 Dohle Bodies Not Reportable 02/21/17 18:12 Pelger-Huet Anomaly Not Reportable 02/21/17 18:12 Zoran Rods Not Reportable 02/21/17 18:12 Platelet Estimate Appears normal 02/21/17 18:12 Clumped Platelets Not Reportable 02/21/17 18:12 Plt Clumps, EDTA Not Reportable 02/21/17 18:12 Large Platelets Not Reportable 02/21/17 18:12 Giant Platelets Not Reportable 02/21/17 18:12 Platelet Satelliting Not Reportable 02/21/17 18:12 Plt Morphology Comment Not Reportable 02/21/17 18:12 RBC Morphology Normal 02/21/17 18:12 Dimorphic RBCs Not Reportable 02/21/17 18:12 Polychromasia Not Reportable 02/21/17 18:12 Hypochromasia Not Reportable 02/21/17 18:12 Poikilocytosis Not Reportable 02/21/17 18:12 Anisocytosis Not Reportable 02/21/17 18:12 Microcytosis Not Reportable 02/21/17 18:12 Macrocytosis Not Reportable 02/21/17 18:12 Spherocytes Not Reportable 02/21/17 18:12 Pappenheimer Bodies Not Reportable 02/21/17 18:12 Sickle Cells Not Reportable 02/21/17 18:12 Target Cells Not Reportable 02/21/17 18:12 Tear Drop Cells Not Reportable 02/21/17 18:12 Ovalocytes Not Reportable 02/21/17 18:12 Helmet Cells Not Reportable 02/21/17 18:12 Black-[place] Bodies Not Reportable 02/21/17 18:12 [place] Rings Not Reportable 02/21/17 18:12 [place] Cells Not Reportable 02/21/17 18:12 Bite Cells Not Reportable 02/21/17 18:12 Crenated Cell Not Reportable 02/21/17 18:12 Elliptocytes Not Reportable 02/21/17 18:12 Acanthocytes (Spur) Not Reportable 02/21/17 18:12 Rouleaux Not Reportable 02/21/17 18:12 Hemoglobin C Crystals Not Reportable 02/21/17 18:12 Schistocytes Not Reportable 02/21/17 18:12 Malaria parasites Not Reportable 02/21/17 18:12 Richard Bodies Not Reportable 02/21/17 18:12 Hem Pathologist Commnt No 02/21/17 18:12 PT 13.5 Sec. (12.2-14.9) 02/21/17 18:30 INR 1.04 (0.87-1.13) 02/21/17 18:30 APTT 32.7 Sec. (24.2-36.6) 02/21/17 18:30 POC ABG pH 7.422 (7.35-7.45) 02/21/17 19:29 POC ABG pCO2 23.5 (35-45) L 02/21/17 19:29 POC ABG pO2 57 (80-105) L 02/21/17 19:29 POC ABG HCO3 15.3 02/21/17 19:29 POC ABG Total CO2 16 02/21/17 19:29 POC ABG O2 Sat 91 02/21/17 19:29 POC ABG Base Excess -9 02/21/17 19:29 FiO2 32 % 02/21/17 19:29 Sodium 140 mmol/L (137-145) 02/22/17 03:39 Potassium 5.1 mmol/L (3.6-5.0) H 02/22/17 03:39 Chloride 100.9 mmol/L (98-107) 02/22/17 03:39 Carbon Dioxide 17 mmol/L (22-30) L 02/22/17 03:39 Anion Gap 27 mmol/L 02/22/17 03:39 BUN 25 mg/dL (7-17) H 02/22/17 03:39 Creatinine 2.1 mg/dL (0.7-1.2) H 02/22/17 03:39 Estimated GFR 24 ml/min 02/22/17 03:39 BUN/Creatinine Ratio 11.90 % 02/22/17 03:39 Glucose 137 mg/dL (65-100) H 02/22/17 03:39 POC Glucose 334 (70-105) H 02/21/17 19:15 Hemoglobin A1c 5.9 % (4-6) 02/21/17 18:12 Lactic Acid 5.20 mmol/L (0.7-2.0) H* 02/21/17 19:36 Calcium 9.8 mg/dL (8.4-10.2) 02/22/17 03:39 Magnesium 2.30 mg/dL (1.7-2.3) 02/21/17 18:30 Total Bilirubin 0.50 mg/dL (0.1-1.2) 02/22/17 03:39 AST 420 units/L (5-40) H 02/22/17 03:39 ALT 532 units/L (7-56) H 02/22/17 03:39 Alkaline Phosphatase 113 units/L (35-129) 02/22/17 03:39 Ammonia 60.0 umol/L (25-60) 02/21/17 18:30 Total Creatine Kinase 119 units/L (30-135) 02/21/17 19:36 Total Protein 7.8 g/dL (6.3-8.2) 02/22/17 03:39 Albumin 3.9 g/dL (3.9-5) 02/22/17 03:39 Albumin/Globulin Ratio 1.0 % 02/22/17 03:39 Triglycerides 65 mg/dL (2-149) 02/22/17 03:39 Cholesterol 228 mg/dL (50-199) H 02/22/17 03:39 LDL Cholesterol Direct 156 mg/dL (50-130) H 02/22/17 03:39 HDL Cholesterol 59 mg/dL (40-59) 02/22/17 03:39 Cholesterol/HDL Ratio 3.86 % 02/22/17 03:39 TSH 4.100 mlU/mL (0.270-4.200) 02/21/17 18:30 Salicylates < 0.3 mg/dL (2.8-20.0) L 02/21/17 18:12 Acetaminophen < 15.0 ug/mL (10.0-30.0) 02/21/17 18:12 Plasma/Serum Alcohol < 0.01 gm% (0-0.07) 02/21/17 18:12
--- NOTE | 2017-02-22 13:11 | Ultrasound Report ---
ULTRASOUND RENAL INDICATION: Acute renal failure. COMPARISON: None similar. FINDINGS: Renal sonography suggests normal/top normal renal cortical echogenicity. Grossly preserved contours. No hydronephrosis. RIGHT KIDNEY measures 9.6 x 4.3 x 4.5 cm with cortical thickness of 1.3 cm. LEFT KIDNEY estimated at 10.2 x 4.3 x 4.9 cm with cortical thickness of 1.3 cm. URINARY BLADDER empty and suboptimally assessed. CONCLUSION: No acute renal sonographic abnormality, as described. Thank you for the opportunity to participate in this patient's care.
[2017-02-23] MEDS: D5NS 1,000 ML IV SCH ×2 (02:23→20:50)
[2017-02-23] MEDS: HEPARIN SUB-Q SCH ×4 (05:58→22:46)
--- NOTE | 2017-02-23 09:15 | Progress Note ---
Assessment and Plan - Patient Problems (1) MARIBEL (acute kidney injury) Current Visit: Yes Status: Acute Plan to address problem: MARIBEL likely hemodynamically mediated in the setting of volume depletion and ? sepsis. Renal function is improving. Continue IV fluids. (2) Hyperkalemia Current Visit: Yes Status: Acute Plan to address problem: Mild hyperkalemia secondary to MARIBEL. Improved now. (3) Acidosis, lactic Current Visit: Yes Status: Acute Plan to address problem: Improved. (4) Encephalopathy Current Visit: Yes Status: Acute (5) Elevated liver enzymes Current Visit: Yes Status: Acute Plan to address problem: Improving. (6) Hyperglycemia Current Visit: Yes Status: Acute Subjective Date of service: 02/23/17 Interval history: Patient is feeling better. Objective - Vital Signs Vital signs: Vital Signs - 12hr 02/22/17 02/23/17 02/23/17 22:00 00:52 05:00 Temperature 98.4 F 98.2 F Pulse Rate 65 Pulse Rate [ 65 60 Left] Respiratory 20 22 Rate Blood Pressure 119/63 103/57 [Left Arm] O2 Sat by Pulse 95 98 Oximetry 02/23/17 08:58 Temperature 97.8 F Pulse Rate Pulse Rate [ 57 L Left] Respiratory 18 Rate Blood Pressure 135/70 [Left Arm] O2 Sat by Pulse 100 Oximetry - General Appearance General appearance: well-developed, well-nourished, appears stated age, obese, other (no distress) EENT: ATNC, PERRL, mucous membranes moist, hearing intact, vision intact Neck: supple Respiratory: Present: Clear to Ascultation Cardiology: regular, S1S2, no murmurs Gastrointestinal: normoactive bowel sounds Integumentary: no rash Neurologic: no focal deficit, no asterixis, confused Musculoskeletal: other (no edema) Psychiatric: mood/affect appropriate, cooperative - Lab 02/23/17 20:35 02/23/17 20:50 Most recent lab results Calcium 9.8 mg/dL (8.4-10.2) 02/22/17 03:39 Magnesium 2.30 mg/dL (1.7-2.3) 02/21/17 18:30
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
[2017-02-23] MEDS: ROCEPHIN/NS 2 GM/100 ML 2 GM/100 ML BAG IV SCH ×2 (13:30→15:34)
[2017-02-23] MEDS: PEPCID PO SCH ×2 (13:30→22:46)
--- NOTE | 2017-02-23 13:34 | Magnetic Resonance Report ---
MRI scan of brain: History: Stroke. Technique : Multiplanar multisequence images were obtained without contrast injection. Findings: No evidence of restricted diffusion. Ventricles are normal in size and midline in location. No evidence of acute ischemia, or mass. No extra axial fluid collection. Normal brainstem and cerebellum Opacified right maxillary sinus and mastoid air cells. Impression: No acute intracranial abnormality. Acute sinusitis, acute bilateral mastoiditis.
--- NOTE | 2017-02-23 13:35 | Magnetic Resonance Report ---
MRA of brain: History: Stroke. Findings: The vessels of [place] of [place] are widely patent. No evidence of stenosis, occlusion, dissection or aneurysm. Dominant left vertebral artery. Normal basilar artery. Normal communicating vessels. Impression: Essentially negative MRA of brain.
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
[2017-02-23 20:48] LABS: Basophils % (Auto) 0.5 % (0.0-1.8); Eosinophils % (Auto) 0.8 % (0.0-4.3); Hematocrit 36.2 % (30.3-42.9); Hemoglobin 12.1 gm/dl (10.1-14.3); Mean Corpuscular HGB Conc 33 % (30-34); Mean Corpuscular Hemoglobin 29 pg (28-32); Mean Corpuscular Volume 88 fl (79-97); Platelet Count 167 K/mm3 (140-440); Red Blood Count 4.12 M/mm3 (3.65-5.03); Red Cell Distribution Width 15.7 % (13.2-15.2); White Blood Count 13.3 K/mm3 (4.5-11.0)
[2017-02-23] MEDS: TYLENOL PO PRN (20:50)
[2017-02-23 21:27] LABS: Albumin 4.1 g/dL (3.9-5); Albumin/Globulin Ratio 1.3 %; Bilirubin,Total 0.3 mg/dL (0.1-1.2); Calcium 9.7 mg/dL (8.4-10.2); Chloride 99.4 mmol/L (98-107); Potassium 4.8 mmol/L (3.6-5.0); Total Protein 7.3 g/dL (6.3-8.2)
[2017-02-23 21:46] LABS: Albumin 4.1 g/dL (3.9-5); Albumin/Globulin Ratio 1.3 %; Alkaline Phosphatase 113 units/L (35-129); Total Protein 7.2 g/dL (6.3-8.2)
[2017-02-23 21:53] LABS: Bilirubin,Direct < 0.2 mg/dL (0-0.2); Bilirubin,Indirect 0.2 mg/dL
[2017-02-23 22:10] LABS: Alanine Aminotransferase 770 units/L (7-56)
[2017-02-23] MEDS: ZOCOR PO SCH (22:46)
[2017-02-24 05:37] LABS: Chloride 96.2 mmol/L (98-107); Potassium 4.3 mmol/L (3.6-5.0)
[2017-02-24] MEDS: HEPARIN SUB-Q SCH ×3 (06:04→21:53)
[2017-02-24 07:09] LABS: Basophils % (Auto) 0.7 % (0.0-1.8); Eosinophils % (Auto) 1.8 % (0.0-4.3); Hematocrit 36.7 % (30.3-42.9); Hemoglobin 12.2 gm/dl (10.1-14.3); Mean Corpuscular HGB Conc 33 % (30-34); Mean Corpuscular Hemoglobin 29 pg (28-32); Mean Corpuscular Volume 89 fl (79-97); Platelet Count 158 K/mm3 (140-440); Red Blood Count 4.14 M/mm3 (3.65-5.03); Red Cell Distribution Width 15.7 % (13.2-15.2); White Blood Count 10.3 K/mm3 (4.5-11.0)
--- NOTE | 2017-02-24 08:56 | Progress Note ---
Assessment and Plan - Patient Problems (1) MARIBEL (acute kidney injury) Current Visit: Yes Status: Acute Plan to address problem: MARIBEL likely hemodynamically mediated in the setting of volume depletion and ? sepsis. Renal function has improved. Creatinine is likely at her baseline. Will stop IV fluids. (2) Hyperkalemia Current Visit: Yes Status: Acute Plan to address problem: Mild hyperkalemia secondary to MARIBEL. Improved now. (3) Acidosis, lactic Current Visit: Yes Status: Acute Plan to address problem: Improved. (4) Encephalopathy Current Visit: Yes Status: Acute (5) Elevated liver enzymes Current Visit: Yes Status: Acute Plan to address problem: Improving. (6) Hyperglycemia Current Visit: Yes Status: Acute Subjective Date of service: 02/24/17 Interval history: Patient is feeling better. Objective - Vital Signs Vital signs: Vital Signs - 12hr 02/23/17 02/24/17 02/24/17 22:00 00:53 05:35 Temperature 0 F L 97.6 F Pulse Rate [ 59 L 63 Left] Respiratory 18 20 18 Rate Respiratory 18 Rate [Left Knee ] Blood Pressure 144/80 168/79 [Left Arm] O2 Sat by Pulse 98 95 Oximetry 02/24/17 08:21 Temperature 98.5 F Pulse Rate [ 52 L Left] Respiratory 20 Rate Respiratory Rate [Left Knee ] Blood Pressure 150/79 [Left Arm] O2 Sat by Pulse Oximetry - General Appearance General appearance: well-developed, well-nourished, appears stated age, obese, other (no distress) EENT: ATNC, PERRL, mucous membranes moist Neck: supple Respiratory: Present: Clear to Ascultation Cardiology: regular, S1S2, no murmurs Gastrointestinal: normoactive bowel sounds, no tenderness, obese Integumentary: no rash Neurologic: no focal deficit, no asterixis, confused Musculoskeletal: other (no edema) Psychiatric: mood/affect appropriate, cooperative - Lab 02/24/17 05:58 02/24/17 04:39 Most recent lab results Calcium 9.0 mg/dL (8.4-10.2) 02/24/17 04:39 Magnesium 2.30 mg/dL (1.7-2.3) 02/21/17 18:30
[2017-02-24] MEDS: ROCEPHIN/NS 2 GM/100 ML 2 GM/100 ML BAG IV SCH (09:52)
[2017-02-24] MEDS: PEPCID PO SCH ×2 (09:53→21:53)
--- NOTE | 2017-02-24 11:39 | Progress Note ---
Assessment and Plan Assessment and plan: Sepsis. Follow-up blood, urine and sputum cultures. Cultures thus far negative. Etiology may be secondary to sinusitis/mastoiditis. Acute sinusitis/mastoiditis. Continue antibiotics as above. Acute encephalopathy. Resolved. Etiology likely secondary to toxic metabolic + /- cva. Continue to treat underlying cause. Acute CVA. Patient reports left lower extremity weakness. PT/OT. CT scan of the head is negative. Carotid ultrasound essentially negative. MRI/MRA negative for CVA. Neurology consultation pending. Lactic acidosis. Etiology secondary to #1. Acute renal failure. Resolved. Etiology likely secondary to acute kidney injury from #1. Nephrology following. Follow-up urine studies and renal ultrasound is negative. Elevated LFTs. Etiology likely secondary to ischemic hepatitis from #1. Monitor closely. Consider ultrasound and hepatitis panel if no improvement. Recheck LFTs in a.m. Schizophrenia. Patient exhibiting some paranoia. Psychiatric consultation. DVT prophylaxis. Continue Lovenox. History Interval history: Patient still complains of left lower extremity weakness but much improvement. Hospitalist Physical - Constitutional Vitals: Temp Pulse Resp BP Pulse Ox 98.5 F 52 L 20 150/79 95 02/24/17 08:21 02/24/17 08:21 02/24/17 08:21 02/24/17 08:21 02/24/17 05:35 General appearance: Present: no acute distress, well-nourished - EENT Eyes: Present: PERRL, EOM intact ENT: hearing intact, clear oral mucosa, dentition normal - Neck Neck: Present: supple, normal ROM - Respiratory Respiratory effort: normal Respiratory: bilateral: CTA - Cardiovascular Rhythm: regular Heart Sounds: Present: S1 & S2. Absent: gallop, rub - Extremities Extremities: no ischemia, No edema, Full ROM - Abdominal General gastrointestinal: soft, non-tender, non-distended, normal bowel sounds - Integumentary Integumentary: Present: clear, warm, dry - Neurologic Neurologic: CNII-XII intact, moves all extremities Results - Labs CBC & Chem 7: 02/24/17 05:58 02/24/17 04:39 Labs: Laboratory Last Values WBC 10.3 K/mm3 (4.5-11.0) 02/24/17 05:58 RBC 4.14 M/mm3 (3.65-5.03) 02/24/17 05:58 Hgb 12.2 gm/dl (10.1-14.3) 02/24/17 05:58 Hct 36.7 % (30.3-42.9) 02/24/17 05:58 MCV 89 fl (79-97) 02/24/17 05:58 MCH 29 pg (28-32) 02/24/17 05:58 MCHC 33 % (30-34) 02/24/17 05:58 RDW 15.7 % (13.2-15.2) H 02/24/17 05:58 Plt Count 158 K/mm3 (140-440) 02/24/17 05:58 Lymph % (Auto) 39.6 % (13.4-35.0) H 02/24/17 05:58 Cass % (Auto) 8.8 % (0.0-7.3) H 02/24/17 05:58 Eos % (Auto) 1.8 % (0.0-4.3) 02/24/17 05:58 Baso % (Auto) 0.7 % (0.0-1.8) 02/24/17 05:58 Lymph # 4.1 K/mm3 (1.2-5.4) 02/24/17 05:58 Cass # 0.9 K/mm3 (0.0-0.8) H 02/24/17 05:58 Eos # 0.2 K/mm3 (0.0-0.4) 02/24/17 05:58 Baso # 0.1 K/mm3 (0.0-0.1) 02/24/17 05:58 Add Manual Diff Complete 02/21/17 18:12 Total Counted 100 02/21/17 18:12 Seg Neutrophils % 49.1 % (40.0-70.0) 02/24/17 05:58 Seg Neuts % (Manual) 57.0 % (40.0-70.0) 02/21/17 18:12 Band Neutrophils % 0 % 02/21/17 18:12 Lymphocytes % (Manual) 33.0 % (13.4-35.0) 02/21/17 18:12 Reactive Lymphs % (Man) 0 % 02/21/17 18:12 Monocytes % (Manual) 10.0 % (0.0-7.3) H 02/21/17 18:12 Eosinophils % (Manual) 0 % (0.0-4.3) 02/21/17 18:12 Basophils % (Manual) 0 % (0.0-1.8) 02/21/17 18:12 Metamyelocytes % 0 % 02/21/17 18:12 Myelocytes % 0 % 02/21/17 18:12 Promyelocytes % 0 % 02/21/17 18:12 Blast Cells % 0 % 02/21/17 18:12 Nucleated RBC % Not Reportable 02/21/17 18:12 Seg Neutrophils # 5.1 K/mm3 (1.8-7.7) 02/24/17 05:58 Seg Neutrophils # Man 8.3 K/mm3 (1.8-7.7) H 02/21/17 18:12 Band Neutrophils # 0.0 K/mm3 02/21/17 18:12 Lymphocytes # (Manual) 4.8 K/mm3 (1.2-5.4) 02/21/17 18:12 Abs React Lymphs (Man) 0.0 K/mm3 02/21/17 18:12 Monocytes # (Manual) 1.5 K/mm3 (0.0-0.8) H 02/21/17 18:12 Eosinophils # (Manual) 0.0 K/mm3 (0.0-0.4) 02/21/17 18:12 Basophils # (Manual) 0.0 K/mm3 (0.0-0.1) 02/21/17 18:12 Metamyelocytes # 0.0 K/mm3 02/21/17 18:12 Myelocytes # 0.0 K/mm3 02/21/17 18:12 Promyelocytes # 0.0 K/mm3 02/21/17 18:12 Blast Cells # 0.0 K/mm3 02/21/17 18:12 WBC Morphology Not Reportable 02/21/17 18:12 Hypersegmented Neuts Not Reportable 02/21/17 18:12 Hyposegmented Neuts Not Reportable 02/21/17 18:12 Hypogranular Neuts Not Reportable 02/21/17 18:12 Smudge Cells Not Reportable 02/21/17 18:12 Toxic Granulation Not Reportable 02/21/17 18:12 Toxic Vacuolation Not Reportable 02/21/17 18:12 Dohle Bodies Not Reportable 02/21/17 18:12 Pelger-Huet Anomaly Not Reportable 02/21/17 18:12 Zoran Rods Not Reportable 02/21/17 18:12 Platelet Estimate Appears normal 02/21/17 18:12 Clumped Platelets Not Reportable 02/21/17 18:12 Plt Clumps, EDTA Not Reportable 02/21/17 18:12 Large Platelets Not Reportable 02/21/17 18:12 Giant Platelets Not Reportable 02/21/17 18:12 Platelet Satelliting Not Reportable 02/21/17 18:12 Plt Morphology Comment Not Reportable 02/21/17 18:12 RBC Morphology Normal 02/21/17 18:12 Dimorphic RBCs Not Reportable 02/21/17 18:12 Polychromasia Not Reportable 02/21/17 18:12 Hypochromasia Not Reportable 02/21/17 18:12 Poikilocytosis Not Reportable 02/21/17 18:12 Anisocytosis Not Reportable 02/21/17 18:12 Microcytosis Not Reportable 02/21/17 18:12 Macrocytosis Not Reportable 02/21/17 18:12 Spherocytes Not Reportable 02/21/17 18:12 Pappenheimer Bodies Not Reportable 02/21/17 18:12 Sickle Cells Not Reportable 02/21/17 18:12 Target Cells Not Reportable 02/21/17 18:12 Tear Drop Cells Not Reportable 02/21/17 18:12 Ovalocytes Not Reportable 02/21/17 18:12 Helmet Cells Not Reportable 02/21/17 18:12 [place] Bodies Not Reportable 02/21/17 18:12 [place] Rings Not Reportable 02/21/17 18:12 Salome Cells Not Reportable 02/21/17 18:12 Bite Cells Not Reportable 02/21/17 18:12 Crenated Cell Not Reportable 02/21/17 18:12 Elliptocytes Not Reportable 02/21/17 18:12 Acanthocytes (Spur) Not Reportable 02/21/17 18:12 Rouleaux Not Reportable 02/21/17 18:12 Hemoglobin C Crystals Not Reportable 02/21/17 18:12 Schistocytes Not Reportable 02/21/17 18:12 Malaria parasites Not Reportable 02/21/17 18:12 Richard Bodies Not Reportable 02/21/17 18:12 Hem Pathologist Commnt No 02/21/17 18:12 PT 13.5 Sec. (12.2-14.9) 02/21/17 18:30 INR 1.04 (0.87-1.13) 02/21/17 18:30 APTT 32.7 Sec. (24.2-36.6) 02/21/17 18:30 POC ABG pH 7.422 (7.35-7.45) 02/21/17 19:29 POC ABG pCO2 23.5 (35-45) L 02/21/17 19:29 POC ABG pO2 57 (80-105) L 02/21/17 19:29 POC ABG HCO3 15.3 02/21/17 19:29 POC ABG Total CO2 16 02/21/17 19:29 POC ABG O2 Sat 91 02/21/17 19:29 POC ABG Base Excess -9 02/21/17 19:29 FiO2 32 % 02/21/17 19:29 Sodium 130 mmol/L (137-145) L D 02/24/17 04:39 Potassium 4.3 mmol/L (3.6-5.0) 02/24/17 04:39 Chloride 96.2 mmol/L (98-107) L 02/24/17 04:39 Carbon Dioxide 17 mmol/L (22-30) L 02/24/17 04:39 Anion Gap 21 mmol/L 02/24/17 04:39 BUN 18 mg/dL (7-17) H 02/24/17 04:39 Creatinine 1.2 mg/dL (0.7-1.2) 02/24/17 04:39 Estimated GFR 46 ml/min 02/24/17 04:39 BUN/Creatinine Ratio 15.00 % 02/24/17 04:39 Glucose 95 mg/dL (65-100) 02/24/17 04:39 POC Glucose 99 (70-105) 02/24/17 08:16 Hemoglobin A1c 5.9 % (4-6) 02/21/17 18:12 Lactic Acid 1.30 mmol/L (0.7-2.0) 02/23/17 20:35 Calcium 9.0 mg/dL (8.4-10.2) 02/24/17 04:39 Magnesium 2.30 mg/dL (1.7-2.3) 02/21/17 18:30 Total Bilirubin 0.40 mg/dL (0.1-1.2) 02/23/17 20:50 Direct Bilirubin < 0.2 mg/dL (0-0.2) 02/23/17 20:50 Indirect Bilirubin 0.2 mg/dL 02/23/17 20:50 AST 338 units/L (5-40) H 02/23/17 20:50 ALT 770 units/L (7-56) H 02/23/17 20:50 Alkaline Phosphatase 113 units/L (35-129) 02/23/17 20:50 Ammonia 60.0 umol/L (25-60) 02/21/17 18:30 Total Creatine Kinase 119 units/L (30-135) 02/21/17 19:36 Total Protein 7.2 g/dL (6.3-8.2) 02/23/17 20:50 Albumin 4.1 g/dL (3.9-5) 02/23/17 20:50 Albumin/Globulin Ratio 1.3 % 02/23/17 20:50 Triglycerides 65 mg/dL (2-149) 02/22/17 03:39 Cholesterol 228 mg/dL (50-199) H 02/22/17 03:39 LDL Cholesterol Direct 156 mg/dL (50-130) H 02/22/17 03:39 HDL Cholesterol 59 mg/dL (40-59) 02/22/17 03:39 Cholesterol/HDL Ratio 3.86 % 02/22/17 03:39 TSH 4.100 mlU/mL (0.270-4.200) 02/21/17 18:30 Salicylates < 0.3 mg/dL (2.8-20.0) L 02/21/17 18:12 Acetaminophen < 15.0 ug/mL (10.0-30.0) 02/21/17 18:12 Plasma/Serum Alcohol < 0.01 gm% (0-0.07) 02/21/17 18:12 Hepatitis A IgM Ab Non-reactive (NonReactive) 02/22/17 17: Hep Bs Antigen Non-reactive (Negative) 07/14/17 17:22 Hep B Core IgM Ab Non-reactive (NonReactive) 02/22/17 17:22 Hepatitis C Antibody Non-reactive (NonReactive) 02/22/17 17:22
[2017-02-24] MEDS: ZOCOR PO SCH (21:53)
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
[2017-02-25] MEDS ORDERED: LOPRESSOR PO ONE (00:49)
[2017-02-25] MEDS: HEPARIN SUB-Q SCH (05:58)
[2017-02-25 06:06] LABS: Basophils % (Auto) 0.8 % (0.0-1.8); Eosinophils % (Auto) 1.8 % (0.0-4.3); Hematocrit 40.1 % (30.3-42.9); Hemoglobin 13.5 gm/dl (10.1-14.3); Mean Corpuscular HGB Conc 34 % (30-34); Mean Corpuscular Hemoglobin 30 pg (28-32); Mean Corpuscular Volume 88 fl (79-97); Platelet Count 174 K/mm3 (140-440); Red Blood Count 4.55 M/mm3 (3.65-5.03); Red Cell Distribution Width 15.4 % (13.2-15.2)
[2017-02-25 06:27] LABS: Alanine Aminotransferase 470 units/L (7-56); Albumin 3.5 g/dL (3.9-5); Albumin/Globulin Ratio 0.9 %; Alkaline Phosphatase 104 units/L (35-129); BUN/Creatinine Ratio 15.55; Blood Urea Nitrogen 14 mg/dL (7-17); Calcium 9.7 mg/dL (8.4-10.2); Carbon Dioxide 31 mmol/L (22-30); Glucose 109 mg/dL (65-100); Total Protein 7.2 g/dL (6.3-8.2)
[2017-02-25 06:40] LABS: Chloride 100.1 mmol/L (98-107); Potassium 4.6 mmol/L (3.6-5.0); Sodium 138 mmol/L (137-145)
[2017-02-25 06:45] LABS: Anion Gap 12 mmol/L
--- NOTE | 2017-02-25 07:59 | Progress Note ---
Assessment and Plan - Patient Problems (1) MARIBEL (acute kidney injury) Current Visit: Yes Status: Acute Plan to address problem: MARIBEL likely hemodynamically mediated in the setting of volume depletion and ? sepsis. Renal function has improved. (2) Hyperkalemia Current Visit: Yes Status: Acute Plan to address problem: Mild hyperkalemia secondary to MARIBEL. Improved now. (3) Acidosis, lactic Current Visit: Yes Status: Acute Plan to address problem: Improved. (4) Encephalopathy Current Visit: Yes Status: Acute Plan to address problem: Improving. (5) Elevated liver enzymes Current Visit: Yes Status: Acute (6) Hyperglycemia Current Visit: Yes Status: Acute Subjective Date of service: 02/25/17 Interval history: Patient is feeling better. Objective - Vital Signs Vital signs: Vital Signs - 12hr 02/24/17 02/25/17 02/25/17 20:16 01:03 05:26 Temperature 98.2 F 97.4 F L 97.9 F Pulse Rate [ 86 Left Radial] Pulse Rate [ 100 H 124 H 0 L Left] Pulse Rate [ 0 L Right Radial] Respiratory 20 18 20 Rate Blood Pressure 137/91 141/101 143/78 [Left Arm] O2 Sat by Pulse 100 98 96 Oximetry - General Appearance General appearance: well-developed, well-nourished, appears stated age, obese, other (no distress) EENT: ATNC, mucous membranes moist, hearing intact, vision intact Neck: supple Respiratory: Present: Clear to Ascultation Cardiology: regular, S1S2, no murmurs Gastrointestinal: normoactive bowel sounds, no tenderness, obese Integumentary: no rash Neurologic: no focal deficit, no asterixis, alert and oriented x3 Musculoskeletal: other (no edema) Psychiatric: mood/affect appropriate, cooperative - Lab 02/25/17 05:12 02/25/17 05:12 Most recent lab results Calcium 9.7 mg/dL (8.4-10.2) 02/25/17 05:12 Magnesium 2.30 mg/dL (1.7-2.3) 02/21/17 18:30
--- NOTE | 2017-02-25 09:15 | Event Note ---
Date: 02/25/17 pt seen [facility] prob: jacki,enceph,schizoprenia,?sepsis, ?cva,?syncope, elev lfts afib/rvr vss poor historian echo report noted rec rate control and ac full consult to follow
--- NOTE | 2017-02-25 10:21 | Progress Note ---
Assessment and Plan Assessment and plan: Sepsis. Resolving. Follow-up blood, urine and sputum cultures. Cultures thus far negative. Etiology may be secondary to sinusitis/mastoiditis. Acute sinusitis/mastoiditis. Continue antibiotics as above. Acute encephalopathy. Resolved. Etiology likely secondary to toxic metabolic + /- cva. Continue to treat underlying cause. Acute CVA. Patient reports left lower extremity weakness. PT/OT. CT scan of the head is negative. Carotid ultrasound essentially negative. MRI/MRA negative for CVA. Neurology consultation pending. Lactic acidosis. Etiology secondary to #1. Acute renal failure. Resolved. Etiology likely secondary to acute kidney injury from #1. Nephrology following. Follow-up urine studies and renal ultrasound is negative. Elevated LFTs. Etiology likely secondary to ischemic hepatitis from #1. Monitor closely. Consider ultrasound and hepatitis panel if no improvement. Recheck LFTs in a.m. Schizophrenia. Patient exhibiting paranoid delusions. Psychiatry recommends inpatient psychiatric hospitalization. DVT prophylaxis. Continue Lovenox. History Interval history: Patient still complains of left lower extremity weakness but much improvement. Patient also exhibiting paranoid delusions. Hospitalist Physical - Constitutional Vitals: Temp Pulse Resp BP Pulse Ox 98.2 F 0 L 20 136/96 100 02/25/17 08:31 02/25/17 08:31 02/25/17 08:31 02/25/17 08:31 02/25/17 08:31 General appearance: Present: no acute distress, well-nourished - EENT Eyes: Present: PERRL, EOM intact ENT: hearing intact, clear oral mucosa, dentition normal - Neck Neck: Present: supple, normal ROM - Respiratory Respiratory effort: normal Respiratory: bilateral: CTA - Cardiovascular Rhythm: regular Heart Sounds: Present: S1 & S2. Absent: gallop, rub - Extremities Extremities: no ischemia, No edema, Full ROM - Abdominal General gastrointestinal: soft, non-tender, non-distended, normal bowel sounds - Integumentary Integumentary: Present: clear, warm, dry - Neurologic Neurologic: CNII-XII intact, moves all extremities Results - Labs CBC & Chem 7: 02/25/17 05:12 02/25/17 05:12 Labs: Laboratory Last Values WBC 9.0 K/mm3 (4.5-11.0) 02/25/17 05:12 RBC 4.55 M/mm3 (3.65-5.03) 02/25/17 05:12 Hgb 13.5 gm/dl (10.1-14.3) 02/25/17 05:12 Hct 40.1 % (30.3-42.9) 02/25/17 05:12 MCV 88 fl (79-97) 02/25/17 05:12 MCH 30 pg (28-32) 02/25/17 05:12 MCHC 34 % (30-34) 02/25/17 05:12 RDW 15.4 % (13.2-15.2) H 02/25/17 05:12 Plt Count 174 K/mm3 (140-440) 02/25/17 05:12 Lymph % (Auto) 45.1 % (13.4-35.0) H 02/25/17 05:12 [place] % (Auto) 10.9 % (0.0-7.3) H 02/25/17 05:12 Eos % (Auto) 1.8 % (0.0-4.3) 02/25/17 05:12 Baso % (Auto) 0.8 % (0.0-1.8) 02/25/17 05:12 Lymph # 4.0 K/mm3 (1.2-5.4) 02/25/17 05:12 [place] # 1.0 K/mm3 (0.0-0.8) H 02/25/17 05:12 Eos # 0.2 K/mm3 (0.0-0.4) 02/25/17 05:12 Baso # 0.1 K/mm3 (0.0-0.1) 02/25/17 05:12 Add Manual Diff Complete 02/21/17 18:12 Total Counted 100 02/21/17 18:12 Seg Neutrophils % 41.4 % (40.0-70.0) 02/25/17 05:12 Seg Neuts % (Manual) 57.0 % (40.0-70.0) 02/21/17 18:12 Band Neutrophils % 0 % 02/21/17 18:12 Lymphocytes % (Manual) 33.0 % (13.4-35.0) 02/21/17 18:12 Reactive Lymphs % (Man) 0 % 02/21/17 18:12 Monocytes % (Manual) 10.0 % (0.0-7.3) H 02/21/17 18:12 Eosinophils % (Manual) 0 % (0.0-4.3) 02/21/17 18:12 Basophils % (Manual) 0 % (0.0-1.8) 02/21/17 18:12 Metamyelocytes % 0 % 02/21/17 18:12 Myelocytes % 0 % 02/21/17 18:12 Promyelocytes % 0 % 02/21/17 18:12 Blast Cells % 0 % 02/21/17 18:12 Nucleated RBC % Not Reportable 02/21/17 18:12 Seg Neutrophils # 3.7 K/mm3 (1.8-7.7) 02/25/17 05:12 Seg Neutrophils # Man 8.3 K/mm3 (1.8-7.7) H 02/21/17 18:12 Band Neutrophils # 0.0 K/mm3 02/21/17 18:12 Lymphocytes # (Manual) 4.8 K/mm3 (1.2-5.4) 02/21/17 18:12 Abs React Lymphs (Man) 0.0 K/mm3 02/21/17 18:12 Monocytes # (Manual) 1.5 K/mm3 (0.0-0.8) H 02/21/17 18:12 Eosinophils # (Manual) 0.0 K/mm3 (0.0-0.4) 02/21/17 18:12 Basophils # (Manual) 0.0 K/mm3 (0.0-0.1) 02/21/17 18:12 Metamyelocytes # 0.0 K/mm3 02/21/17 18:12 Myelocytes # 0.0 K/mm3 02/21/17 18:12 Promyelocytes # 0.0 K/mm3 02/21/17 18:12 Blast Cells # 0.0 K/mm3 02/21/17 18:12 WBC Morphology Not Reportable 02/21/17 18:12 Hypersegmented Neuts Not Reportable 02/21/17 18:12 Hyposegmented Neuts Not Reportable 02/21/17 18:12 Hypogranular Neuts Not Reportable 02/21/17 18:12 Smudge Cells Not Reportable 02/21/17 18:12 Toxic Granulation Not Reportable 02/21/17 18:12 Toxic Vacuolation Not Reportable 02/21/17 18:12 Dohle Bodies Not Reportable 02/21/17 18:12 Pelger-Huet Anomaly Not Reportable 02/21/17 18:12 Zoran Rods Not Reportable 02/21/17 18:12 Platelet Estimate Appears normal 02/21/17 18:12 Clumped Platelets Not Reportable 02/21/17 18:12 Plt Clumps, EDTA Not Reportable 02/21/17 18:12 Large Platelets Not Reportable 02/21/17 18:12 Giant Platelets Not Reportable 02/21/17 18:12 Platelet Satelliting Not Reportable 02/21/17 18:12 Plt Morphology Comment Not Reportable 02/21/17 18:12 RBC Morphology Normal 02/21/17 18:12 Dimorphic RBCs Not Reportable 02/21/17 18:12 Polychromasia Not Reportable 02/21/17 18:12 Hypochromasia Not Reportable 02/21/17 18:12 Poikilocytosis Not Reportable 02/21/17 18:12 Anisocytosis Not Reportable 02/21/17 18:12 Microcytosis Not Reportable 02/21/17 18:12 Macrocytosis Not Reportable 02/21/17 18:12 Spherocytes Not Reportable 02/21/17 18:12 Pappenheimer Bodies Not Reportable 02/21/17 18:12 Sickle Cells Not Reportable 02/21/17 18:12 Target Cells Not Reportable 02/21/17 18:12 Tear Drop Cells Not Reportable 02/21/17 18:12 Ovalocytes Not Reportable 02/21/17 18:12 Helmet Cells Not Reportable 02/21/17 18:12 Black-[place] Bodies Not Reportable 02/21/17 18:12 [place] Rings Not Reportable 02/21/17 18:12 [place] Cells Not Reportable 02/21/17 18:12 Bite Cells Not Reportable 02/21/17 18:12 Crenated Cell Not Reportable 02/21/17 18:12 Elliptocytes Not Reportable 02/21/17 18:12 Acanthocytes (Spur) Not Reportable 02/21/17 18:12 Rouleaux Not Reportable 02/21/17 18:12 Hemoglobin C Crystals Not Reportable 02/21/17 18:12 Schistocytes Not Reportable 02/21/17 18:12 Malaria parasites Not Reportable 02/21/17 18:12 Richard Bodies Not Reportable 02/21/17 18:12 Hem Pathologist Commnt No 02/21/17 18:12 PT 13.5 Sec. (12.2-14.9) 02/21/17 18:30 INR 1.04 (0.87-1.13) 02/21/17 18:30 APTT 32.7 Sec. (24.2-36.6) 02/21/17 18:30 POC ABG pH 7.422 (7.35-7.45) 02/21/17 19:29 POC ABG pCO2 23.5 (35-45) L 02/21/17 19:29 POC ABG pO2 57 (80-105) L 02/21/17 19:29 POC ABG HCO3 15.3 02/21/17 19:29 POC ABG Total CO2 16 02/21/17 19:29 POC ABG O2 Sat 91 02/21/17 19:29 POC ABG Base Excess -9 02/21/17 19:29 FiO2 32 % 02/21/17 19:29 Sodium 138 mmol/L (137-145) D 02/25/17 05:12 Potassium 4.6 mmol/L (3.6-5.0) 02/25/17 05:12 Chloride 100.1 mmol/L (98-107) 02/25/17 05:12 Carbon Dioxide 31 mmol/L (22-30) H D 02/25/17 05:12 Anion Gap 12 mmol/L 02/25/17 05:12 BUN 14 mg/dL (7-17) 02/25/17 05:12 Creatinine 0.9 mg/dL (0.7-1.2) 02/25/17 05:12 Estimated GFR > 60 ml/min 02/25/17 05:12 BUN/Creatinine Ratio 15.55 % 02/25/17 05:12 Glucose 109 mg/dL (65-100) H 02/25/17 05:12 POC Glucose 153 (70-105) H 02/24/17 16:39 Hemoglobin A1c 5.9 % (4-6) 02/21/17 18:12 Lactic Acid 1.30 mmol/L (0.7-2.0) 02/23/17 20:35 Calcium 9.7 mg/dL (8.4-10.2) 02/25/17 05:12 Magnesium 2.30 mg/dL (1.7-2.3) 02/21/17 18:30 Total Bilirubin 0.30 mg/dL (0.1-1.2) 02/25/17 05:12 Direct Bilirubin < 0.2 mg/dL (0-0.2) 02/23/17 20:50 Indirect Bilirubin 0.2 mg/dL 02/23/17 20:50 AST 122 units/L (5-40) H 02/25/17 05:12 ALT 470 units/L (7-56) H 02/25/17 05:12 Alkaline Phosphatase 104 units/L (35-129) 02/25/17 05:12 Ammonia 60.0 umol/L (25-60) 02/21/17 18:30 Total Creatine Kinase 119 units/L (30-135) 02/21/17 19:36 Total Protein 7.2 g/dL (6.3-8.2) 02/25/17 05:12 Albumin 3.5 g/dL (3.9-5) L 02/25/17 05:12 Albumin/Globulin Ratio 0.9 % 02/25/17 05:12 Triglycerides 65 mg/dL (2-149) 02/22/17 03:39 Cholesterol 228 mg/dL (50-199) H 02/22/17 03:39 LDL Cholesterol Direct 156 mg/dL (50-130) H 02/22/17 03:39 HDL Cholesterol 59 mg/dL (40-59) 02/22/17 03:39 Cholesterol/HDL Ratio 3.86 % 02/22/17 03:39 TSH 4.100 mlU/mL (0.270-4.200) 02/21/17 18:30 Salicylates < 0.3 mg/dL (2.8-20.0) L 02/21/17 18:12 Acetaminophen < 15.0 ug/mL (10.0-30.0) 02/21/17 18:12 Plasma/Serum Alcohol < 0.01 gm% (0-0.07) 02/21/17 18:12 Hepatitis A IgM Ab Non-reactive (NonReactive) 02/22/17 17:22 Hep Bs Antigen Non-reactive (Negative) 02/22/17 17:22 Hep B Core IgM Ab Non-reactive (NonReactive) 02/22/17 17:22 Hepatitis C Antibody Non-reactive (NonReactive) 02/22/17 17:22
--- NOTE | 2017-02-25 10:56 | Consultation ---
History of Present Illness Consult date: 02/25/17 Requesting physician: YOVANNY BEDOLLA Reason for Consult: Altered mental status Chief complaint: passed out History of present illness: 61 YO F reportedly with hx of schizophrenia, dementia and Parkinson's but not on any meds for this problem who p/w AMS. She reports her home AC has not been turned on and she was profusely sweating. She tried to eat and drink to overcome the sweating. On 02/21 @ [facility] after eating she felt lightheaded and passed out while seated. There was no seizure prodrome or convulsion, tongue bite or incontinence. She was noted to have AMS in the ED but currently is back to her baseline. Sx are of unclear duration. There are no clear aggravating, relieving or other temporal factors. Severity was such to cause LOC. Past History Past Medical History: other (Dementia, parkinsons, schizophrenia) Past Surgical History: No surgical history Social history: lives with family. denies: smoking, alcohol abuse, prescription drug abuse Family history: hypertension Medications and Allergies Allergies Allergy/AdvReac Type Severity Reaction Status Date / Time morphine Allergy Unknown Verified 02/21/17 18:06 Active Meds: Active Medications Acetaminophen (Tylenol) 650 mg PO Q4H PRN PRN Reason: Pain MILD(1-3)/Fever >100.5/COSTA Last Admin: 02/23/17 20:50 Dose: 650 mg Bisacodyl (Dulcolax) 10 mg [place] QDAY PRN PRN Reason: Constipation unrelieved by MOM Famotidine (Pepcid) 20 mg PO BID [facility] Last Admin: 02/24/17 21:53 Dose: 20 mg Heparin Sodium (Porcine) (Heparin) 5,000 unit SUB-Q Q8HR [facility] Last Admin: 02/25/17 05:58 Dose: 5,000 unit Hydromorphone HCl (Dilaudid) 0.5 mg IV Q3H PRN PRN Reason: Pain , Severe (7-10) Last Admin: 02/22/17 01:07 Dose: 0.5 mg Ceftriaxone Sodium (Rocephin/Ns 2 Gm/100 Ml) 2 gm in 100 mls @ 200 mls/hr IV Q24HR HATTIE PRN Reason: Protocol Last Admin: 02/24/17 09:52 Dose: 200 mls/hr Magnesium Hydroxide (Milk Of Magnesia) 30 ml PO Q4H PRN PRN Reason: Constipation Ondansetron HCl (Zofran) 4 mg IV Q8H PRN PRN Reason: N/V unrelieved by Reglan Oxycodone/Acetaminophen (Percocet 5/325) 1 tab PO Q6H PRN PRN Reason: Pain, Moderate (4-6) Simvastatin (Zocor) 20 mg PO QHS [facility] Last Admin: 02/24/17 21:53 Dose: 20 mg Sodium Chloride (Sodium Chloride Flush Syringe 10 Ml) 10 ml IV PRN PRN PRN Reason: LINE FLUSH Review of Systems All systems: negative Constitutional: fatigue Neurological: syncope, no head injury, no paralysis, no weakness, no parathesias , no numbness, no tingling, no vertigo, no headaches, no change in speech, no confusion, no gait dysfunction, no motor disturbance, no sensory deficit, no paralysis Psychiatric: no anxiety, no depression, no confusion Physical Examination - Vital Signs Vital Signs: Vital Signs Pulse Resp BP Pulse Ox 76 22 168/113 99 02/21/17 18:32 02/21/17 18:32 02/21/17 18:32 02/21/17 18:32 - Constitutional General appearance: comfortable - EENT EENT: Present: ATNC, PERRL, mucous membranes moist, hearing intact, vision intact - Respiratory Respiratory: Present: chest non-tender, normal breath sounds, no respiratory distress - Cardiovascular Cardiovascular: Present: regular rate Extremities: Present: no peripheral edema bilatateraly, no clubbing, cyanosis, no inflammation, no ischemia or petechiae - Gastrointestinal Gastrointestinal: Present: normoactive bowel sounds, soft, non-distended - Integumentary Integumentary: Present: normal - Neurologic Cranial nerve examination: PERRL, EOMI, VFF, V1/V2/V3 grossly intact, face symmetric, tongue midline, intact, intact shoulder shrug, Intact Vestibulo- ocular r, intact corneal reflex, normal palatal elevation Speech examination: intact Sensorimotor examination: intact Detailed motor examination: grossly full strength in Motor examination - right side: 5/5: biceps, triceps, wrist flexion, wrist extension, svp operations, hip flexors, knee extensors, dorsiflexion, toe extension (EHL) , plantarflexion Motor examination - left side: 5/5: biceps, triceps, wrist flexion, wrist extension, svp operations, hip flexors, knee extensors, dorsiflexion, toe extension (EHL) , plantarflexion Detailed sensory examination: intact, light touch, temperature Reflex and gait examination: intact Reflexes: 1+: ankle, 2+: bicep, knee, tricep - Musculoskeletal Musculoskeletal: Present: no fluid collection, no pain, normal range of motion - Psychiatric Psychiatric: Present: mood/affect appropriate, cooperative Results - Laboratory Findings CBC and BMP: 02/25/17 05:12 02/25/17 05:12 Abnormal Lab Findings: Abnormal Labs 02/22/17 02/22/17 02/22/17 03:39 03:39 20:51 WBC 17.3 H Hgb 14.4 H Hct 45.5 H RDW 16.5 H Lymph % (Auto) 11.9 L [place] % (Auto) [place] # 0.9 H Seg Neutrophils % 82.7 H Seg Neutrophils # 14.3 H Sodium Potassium 5.1 H Chloride Carbon Dioxide 17 L BUN 25 H Creatinine 2.1 H Glucose 137 H POC Glucose 166 H AST 420 H ALT 532 H Albumin Cholesterol 228 H LDL Cholesterol Direct 156 H 02/23/17 02/23/17 02/23/17 08:21 12:24 20:35 WBC 13.3 H Hgb Hct RDW 15.7 H Lymph % (Auto) [place] % (Auto) 8.2 H [place] # 1.1 H Seg Neutrophils % Seg Neutrophils # 9.1 H Sodium Potassium Chloride Carbon Dioxide BUN Creatinine Glucose POC Glucose 118 H 124 H AST ALT Albumin Cholesterol LDL Cholesterol Direct 02/23/17 02/23/17 02/24/17 20:50 20:50 04:39 WBC Hgb Hct RDW Lymph % (Auto) [place] % (Auto) [place] # Seg Neutrophils % Seg Neutrophils # Sodium 130 L D Potassium Chloride 96.2 L Carbon Dioxide 17 L BUN 26 H 18 H Creatinine 1.3 H Glucose POC Glucose AST 339 H 338 H ALT 774 H 770 H Albumin Cholesterol LDL Cholesterol Direct 02/24/17 02/24/17 02/24/17 05:58 12:42 16:39 WBC Hgb Hct RDW 15.7 H Lymph % (Auto) 39.6 H [place] % (Auto) 8.8 H [place] # 0.9 H Seg Neutrophils % Seg Neutrophils # Sodium Potassium Chloride Carbon Dioxide BUN Creatinine Glucose POC Glucose 122 H 153 H AST ALT Albumin Cholesterol LDL Cholesterol Direct 02/25/17 02/25/17 05:12 05:12 WBC Hgb Hct RDW 15.4 H Lymph % (Auto) 45.1 H [place] % (Auto) 10.9 H [place] # 1.0 H Seg Neutrophils % Seg Neutrophils # Sodium Potassium Chloride Carbon Dioxide 31 H D BUN Creatinine Glucose 109 H POC Glucose AST 122 H ALT 470 H Albumin 3.5 L Cholesterol LDL Cholesterol Direct Assessment and Plan 61 YO F reportedly with hx of schizophrenia, dementia and Parkinson's but not on any meds for these problems who p/w AMS after a clear syncopal event with class presyncopal syndrome assoc w/ excess heat in the home and perspiration and w/o premonitory epileptiform activity e.g aura/automatism, tongue bite, incontinence, motor convulsive activity or clear post episode residual deficit e.g. post ictal state to suggest seizure. Current neuro exam is normal fully intact w/o deficits/focality. I suspect syncope. MRI Brain ordered for ? R M3 hypersdensity on CTH is neg. MRA head neg. TTE and CDs neg. There is no subjective or objective evidence to [employer] process e.g. stroke/seizure/meningitis. She did have pO2 57 in ED and MARIBEL so I suspect she had toxic metabolic encephalopathy. Plan and Recommendation: 1. Telemetry bed w/ Q4 hour neuro checks 2. Labs: Serum/Urine Tox, UA/UCx, Electrolytes especially Na, Ca, Mg, and Glucose, TSH, 3. AED therapy: No clear indication for AED therapy 4. Orthostatic vital signs 5. Conservative management e.g. tapering of BP meds, Alex Hose, encourage PO intake, etc 6. With seemingly clear etiology for syncope there is no clear grounds for driving privilege withdrawal @ this time. However for future reference I have advised Pt of [place] driving regulations: report date of presumed Seizure/ unexplained loss of consciousness/awareness spell to [facility], refrain from operating a motor vehicle for 6 months after this date, and avoid unsupervised activity particularly around water or heights 7. We can revisit as needed. Pt neurologically clear for discharge.
[2017-02-25] MEDS: PEPCID PO SCH ×2 (11:38→21:19)
[2017-02-25] MEDS: ROCEPHIN/NS 2 GM/100 ML 2 GM/100 ML BAG IV SCH (11:38)
--- NOTE | 2017-02-25 12:32 | Consultation ---
History of Present Illness Consult date: 02/25/17 Requesting physician: THELMA DEVRIES Consult reason: atrial fibrillation History of present illness: The pt is a 61 YO female with a past medical history significant for schizophrenia, dementia, ? parkinson's, and "rapid heart beat". She is previously unknown to our practice. She presented after "passing out" at [facility] on 02/21/2017. She recalls sitting at a table at [facility] and putting her head down on the table and then next recalls being in the ED. She reports that she does believe that she lost consciousness during this event. Per records , she was found unresponsive at [facility] and EMS was called. On the day of the event, the patient apparently left her personal shelter along with a walker and 2 large bags and walked to [facility]. The patient allegedly was ambulatory and social with the workers at [facility]. She ordered her food and ate and then suddenly she was found face down unresponsive at her table and EMS was called. On arrival, she was noted to be in AFib with RVR and thus cardiology has been consulted. She denies any palpitations, chest pain, SOB, n/v , diaphoresis or dizziness. She reports that she has been told on prior hospitalizations at [place] that she does have a "rapid heart beat". Past History Past Medical History: other (Dementia, parkinsons, schizophrenia) Past Surgical History: No surgical history Social history: lives with family. denies: smoking, alcohol abuse, prescription drug abuse Family history: hypertension Medications and Allergies Allergies Allergy/AdvReac Type Severity Reaction Status Date / Time morphine Allergy Unknown Verified 02/21/17 18:06 Home Medications Medication Instructions Recorded Confirmed Last Taken Type Unobtainable 02/25/17 02/25/17 Unknown History Active Meds: Active Medications Acetaminophen (Tylenol) 650 mg PO Q4H PRN PRN Reason: Pain MILD(1-3)/Fever >100.5/COSTA Last Admin: 02/23/17 20:50 Dose: 650 mg Bisacodyl (Dulcolax) 10 mg [place] QDAY PRN PRN Reason: Constipation unrelieved by MOM Famotidine (Pepcid) 20 mg PO BID [facility] Last Admin: 02/25/17 11:38 Dose: 20 mg Heparin Sodium (Porcine) (Heparin) 5,000 unit SUB-Q Q8HR [facility] Last Admin: 02/25/17 05:58 Dose: 5,000 unit Hydromorphone HCl (Dilaudid) 0.5 mg IV Q3H PRN PRN Reason: Pain , Severe (7-10) Last Admin: 02/22/17 01:07 Dose: 0.5 mg Ceftriaxone Sodium (Rocephin/Ns 2 Gm/100 Ml) 2 gm in 100 mls @ 200 mls/hr IV Q24HR HATTIE PRN Reason: Protocol Last Admin: 02/25/17 11:38 Dose: 200 mls/hr Magnesium Hydroxide (Milk Of Magnesia) 30 ml PO Q4H PRN PRN Reason: Constipation Ondansetron HCl (Zofran) 4 mg IV Q8H PRN PRN Reason: N/V unrelieved by Reglan Oxycodone/Acetaminophen (Percocet 5/325) 1 tab PO Q6H PRN PRN Reason: Pain, Moderate (4-6) Simvastatin (Zocor) 20 mg PO QHS [facility] Last Admin: 02/24/17 21:53 Dose: 20 mg Sodium Chloride (Sodium Chloride Flush Syringe 10 Ml) 10 ml IV PRN PRN PRN Reason: LINE FLUSH Review of Systems All systems: negative Cardiovascular: syncope, no chest pain, no shortness of breath, no dyspnea on exertion Physical Examination Vital Signs Pulse Resp BP Pulse Ox 76 22 168/113 99 02/21/17 18:32 02/21/17 18:32 02/21/17 18:32 02/21/17 18:32 General appearance: no acute distress HEENT: Positive: PERRL, Normocephaly, Mucus Membranes Moist Neck: Positive: neck supple, trachea midline Cardiac: Positive: irregularly irregular, S1/S2, Tachycardia Lungs: Positive: clear to auscultation Neuro: Positive: Grossly Intact, Cranial Nerve 2-12 Intact Abdomen: Positive: Unremarkable, Soft, Active Bowel Sounds. Negative: Tender Skin: Positive: Clear. Negative: Rash, Wound Musculoskeletal: No Fluid Collection, No Pain, Normal Range of Motion Extremities: Present: upper extr. pulses, lower extr. pulses. Absent: edema Results 02/25/17 05:12 02/25/17 05:12 Cardiac Enzymes 02/25/17 Range/Units 05:12 AST 122 H (5-40) units/L CBC 02/25/17 Range/Units 05:12 WBC 9.0 (4.5-11.0) K/mm3 RBC 4.55 (3.65-5.03) M/mm3 Hgb 13.5 (10.1-14.3) gm/dl Hct 40.1 (30.3-42.9) % Plt Count 174 (140-440) K/mm3 Lymph # 4.0 (1.2-5.4) K/mm3 [place] # 1.0 H (0.0-0.8) K/mm3 Eos # 0.2 (0.0-0.4) K/mm3 Baso # 0.1 (0.0-0.1) K/mm3 Comprehensive Metabolic Panel 02/25/17 Range/Units 05:12 Sodium 138 D (137-145) mmol/L Potassium 4.6 (3.6-5.0) mmol/L Chloride 100.1 (98-107) mmol/L Carbon Dioxide 31 H D (22-30) mmol/L BUN 14 (7-17) mg/dL Creatinine 0.9 (0.7-1.2) mg/dL Glucose 109 H (65-100) mg/dL Calcium 9.7 (8.4-10.2) mg/dL AST 122 H (5-40) units/L ALT 470 H (7-56) units/L Alkaline Phosphatase 104 (35-129) units/L Total Protein 7.2 (6.3-8.2) g/dL Albumin 3.5 L (3.9-5) g/dL - Imaging and Cardiology Echo: report reviewed EKG: report reviewed, image reviewed EKG interpretations - Telemetry EKG Rhythm: Atrial Fibrillation - EKG Supraventricular dysrhythmia: atrial fibrillation Repolarization changes or abnormalities: ST or T wave suggestive of ischemia ( anterolateral t-wave inversions) Assessment and Plan Assessment: Atrial fibrillation with RVR Syncope - CT head/MRI/MRA and carotid studies negative; neurology following. Acute sinusitis / ? sepsis CMP MARIBEL / hyperkalemia - improving Transaminitis Schizophrenia Dementia ? Parkinson's Plan: Echo reviewed - EF 35-40%, LV mildly dilated, abnormal diastolic function, LA mildly dilated, trace MR, trace TR, mild WI. Attempt to obtain [facility] records. Initiate lopressor, 25mg PO TID. Pt with CHADS score of 2 and thus systemic anticoagulation in regards to atrial fibrillation is recommended. Indications, potential risks, and benefits of detention OAC reviewed with pt and she is agreeable to anticoagulation. Initiate heparin gtt with initial bolus and plan to convert to NOAC prior to hospital discharge. Consider ischemic evaluation once medically stabilized prior to discharge. Consider EP consultation prior to discharge in setting of new CMP and syncopal episode. The patient has been seen in conjunction with Dr. Shah who agrees with the assessment and plan of care.
[2017-02-25] MEDS ORDERED: HEPARIN 10,000 UNITS/10 ML IV ONE (13:26)
[2017-02-25 14:32] LABS: Hemoglobin 13.8 gm/dl (10.1-14.3)
[2017-02-25 14:43] LABS: INR 0.95 (0.87-1.13); Partial Thromboplastin Time 25.2 Sec. (24.2-36.6)
[2017-02-25] MEDS: LOPRESSOR PO SCH ×2 (16:10→21:19)
[2017-02-25] MEDS: HEPARIN/ 0.45% NACL-25,000 UNIT/500 ML 25,000 UNIT/500 ML BAG IV SCH (17:00)
[2017-02-25] MEDS: ZOCOR PO SCH (21:19)
[2017-02-26 04:07] LABS: Hemoglobin 13.1 gm/dl (10.1-14.3); Mean Corpuscular HGB Conc 33 % (30-34); Mean Corpuscular Hemoglobin 29 pg (28-32); Mean Corpuscular Volume 89 fl (79-97); Platelet Count 176 K/mm3 (140-440); Red Cell Distribution Width 15.4 % (13.2-15.2); White Blood Count 10.8 K/mm3 (4.5-11.0)
[2017-02-26 04:30] LABS: Alanine Aminotransferase 349 units/L (7-56); Albumin 3.5 g/dL (3.9-5); Alkaline Phosphatase 104 units/L (35-129); Blood Urea Nitrogen 18 mg/dL (7-17); Calcium 9.4 mg/dL (8.4-10.2); Carbon Dioxide 20 mmol/L (22-30); Chloride 97.1 mmol/L (98-107); Glucose 115 mg/dL (65-100); Potassium 4.4 mmol/L (3.6-5.0); Sodium 135 mmol/L (137-145); Total Protein 7.1 g/dL (6.3-8.2)
[2017-02-26 04:38] LABS: Anion Gap 22 mmol/L; Bilirubin,Direct < 0.2 mg/dL (0-0.2)
[2017-02-26 05:26] LABS: Basophils % (Manual) 0 % (0.0-1.8); Blastocytes % (Manual) 0 %; Diff Status Complete; Eosinophils % (Manual) 0 % (0.0-4.3); Platelet Estimate Consistent w Auto; RBC Morphology Normal
[2017-02-26] MEDS: HEPARIN/ 0.45% NACL-25,000 UNIT/500 ML 25,000 UNIT/500 ML BAG IV SCH (07:24)
--- NOTE | 2017-02-26 08:01 | Vascular Lab Report ---
CAROTID DUPLEX STUDY: RIGHT PSVEDV CCA PROX:73 9 CCA DIST:4910 ICA PROX:41 8 ICA MID:4513 ICA DIST:29 9 ECA: 406 VERT: 30 5 LEFT PSVEDV CCA PROX:6310 CCA DIST:5310 ICA PROX:38 8 ICA MID:3712 ICA DIST:N/VN/V ECA: 518 VERT: 32 10 REASON FOR EXAM: Stroke. COMMENTS ON THE RIGHT: Doppler frequency analysis is consistent with 16 to 49 percent diameter reduction of the internal carotid artery. Minimal amount of plaque is seen. The common carotid artery is patent. The external carotid artery is patent. The vertebral artery has antegrade flow. COMMENTS ON THE LEFT: Doppler frequency analysis is consistent with 16 to 49 percent diameter reduction of the internal carotid artery. Minimal amount of plaque is seen. The common carotid artery is patent. The external carotid artery is patent. The vertebral artery has antegrade flow. Distal internal carotid artery not visualized. IMPRESSION: Less than 50% diameter reduction in the internal carotid arteries bilaterally. Distal internal carotid artery on the left not visualized. Clinical correlation recommended
--- NOTE | 2017-02-26 08:45 | Progress Note ---
Assessment and Plan - Patient Problems (1) MARIBEL (acute kidney injury) Current Visit: Yes Status: Acute Plan to address problem: MARIBEL likely hemodynamically mediated in the setting of volume depletion and ? sepsis. Renal function has improved. (2) Hyperkalemia Current Visit: Yes Status: Acute Plan to address problem: Mild hyperkalemia secondary to MARIBEL. Improved now. (3) Acidosis, lactic Current Visit: Yes Status: Acute Plan to address problem: Improved. (4) Encephalopathy Current Visit: Yes Status: Acute Plan to address problem: Improving. (5) Elevated liver enzymes Current Visit: Yes Status: Acute Plan to address problem: Improving. (6) Hyperglycemia Current Visit: Yes Status: Acute Subjective Date of service: 02/26/17 Interval history: Patient is feeling better. Objective - Vital Signs Vital signs: Vital Signs - 12hr 02/26/17 06:23 Temperature 98.1 F Pulse Rate [ 62 Left Radial] Respiratory 23 Rate Blood Pressure 135/90 [Left Arm] O2 Sat by Pulse 100 Oximetry - General Appearance General appearance: well-developed, well-nourished, appears stated age, obese, other (no distress) EENT: ATNC, PERRL, mucous membranes moist, hearing intact, vision intact Neck: supple Respiratory: Present: Clear to Ascultation Cardiology: regular, S1S2, no murmurs Gastrointestinal: normoactive bowel sounds, no tenderness, obese Integumentary: no rash Neurologic: no focal deficit, no asterixis, alert and oriented x3 Musculoskeletal: other (no edema) Psychiatric: mood/affect appropriate, cooperative - Lab 02/26/17 03:17 02/26/17 03:17 Most recent lab results Calcium 9.4 mg/dL (8.4-10.2) 02/26/17 03:17 Magnesium 2.30 mg/dL (1.7-2.3) 02/21/17 18:30
[2017-02-26] MEDS: LOPRESSOR PO SCH ×3 (08:51→21:45)
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
[2017-02-26] MEDS: PEPCID PO SCH ×2 (09:26→21:45)
[2017-02-26] MEDS: ROCEPHIN/NS 2 GM/100 ML 2 GM/100 ML BAG IV SCH (09:27)
--- NOTE | 2017-02-26 10:09 | Progress Note ---
Assessment and Plan Assessment: Paroxysmal atrial fibrillation with RVR --> CVR Syncope / encephalopathy - CT head/MRI/MRA and carotid studies negative; neurology following. Acute sinusitis / ? sepsis CMP - presumably nonischemic in setting of negative lexiscan MPI 07/2016. MARIBEL / hyperkalemia - improving Transaminitis HTN Schizophrenia Dementia ? Parkinson's H/o breast CA Plan: [facility] records reviewed - pt has known paroxysmal atrial fibrillation and was most recently on Xarelto per [facility] cardiology. Echo done 12/2015 showed EF 30 - 35%, mild LVH, grade II diastolic dysfunction, small pericardial effusion, moderate MR, LA moderately to severely dilated. Lexiscan MPI stress test done 07/2016 was negative for ischemia, EF 54%. Cont lopressor, 25mg PO TID. Convert to Toprol XL 50mg daily from tomorrow AM. Pt with CHADS score of 3 and thus systemic anticoagulation in regards to atrial fibrillation is recommended. Convert heparin gtt to Xarelto. Obtain EP consultation prior to discharge in setting of CMP and syncopal episode. The patient has been seen in conjunction with Dr. Shah who agrees with the assessment and plan of care. Subjective Date of service: 02/26/17 Principal diagnosis: paroxysmal atrial flutter with RVR; syncope; CMP Interval history: Pt resting comfortably in bed, no complaints. In AFlutter with CVR, HR 80s, on tele. BPs WNL. Heparin gtt infusing. Objective Last Vital Signs Temp 98.8 F 02/26/17 09:48 Pulse 110 H 02/26/17 09:48 Resp 18 02/26/17 09:48 BP 128/71 02/26/17 09:48 Pulse Ox 98 02/26/17 09:48 - Physical Examination General: Appears Well HEENT: Positive: PERRL, Normocephaly, Mucus Membranes Moist Neck: Positive: neck supple, trachea midline Cardiac: Positive: irregularly irregular, S1/S2 Lungs: Positive: clear to auscultation Neuro: Positive: Grossly Intact, Cranial Nerve 2-12 Intact Abdomen: Positive: Unremarkable, Soft, Active Bowel Sounds. Negative: Tender Skin: Positive: Clear. Negative: Rash, Wound Musculoskeletal: No Fluid Collection, No Pain, Normal Range of Motion Extremities: Present: upper extr. pulses, lower extr. pulses. Absent: edema - Labs and Meds Cardiac Enzymes 02/26/17 Range/Units 03:17 AST 63 H (5-40) units/L Coagulation 02/25/17 Range/Units 13:53 PT 12.6 (12.2-14.9) Sec. INR 0.95 (0.87-1.13) APTT 25.2 (24.2-36.6) Sec. CBC 02/25/17 02/26/17 Range/Units 13:53 03:17 WBC 10.8 (4.5-11.0) K/mm3 RBC 4.50 (3.65-5.03) M/mm3 Hgb 13.8 13.1 (10.1-14.3) gm/dl Hct 42.0 40.0 (30.3-42.9) % Plt Count 203 176 (140-440) K/mm3 Lymph # Ore Bridge Operator Comprehensive Metabolic Panel 02/26/17 Range/Units 03:17 Sodium 135 L (137-145) mmol/L Potassium 4.4 (3.6-5.0) mmol/L Chloride 97.1 L (98-107) mmol/L Carbon Dioxide 20 L D (22-30) mmol/L BUN 18 H (7-17) mg/dL Creatinine 1.0 (0.7-1.2) mg/dL Glucose 115 H (65-100) mg/dL Calcium 9.4 (8.4-10.2) mg/dL Direct Bilirubin < 0.2 (0-0.2) mg/dL AST 63 H (5-40) units/L ALT 349 H (7-56) units/L Alkaline Phosphatase 104 (35-129) units/L Total Protein 7.1 (6.3-8.2) g/dL Albumin 3.5 L (3.9-5) g/dL - Imaging and Cardiology EKG: report reviewed, image reviewed Echo: report reviewed Repolarization changes or abnormalities: ST or T wave suggestive of ischemia ( anterolateral t-wave inversions)
[2017-02-26] MEDS ORDERED: XARELTO PO SCH (11:00)
--- NOTE | 2017-02-26 15:08 | Consultation ---
History of Present Illness Consult date: 02/26/17 Requesting physician: BRAD SIMPSON Consult reason: atrial fibrillation, congestive heart failure, hypertension, shortness of breath, syncope, tachycardia History of present illness: 61-year-old female with a past medical history of a dilated cardiomyopathy ejection fraction of 30-40%, schizophrenia/dementia she resides in a personal snf, history of ankle fracture, history of carpal tunnel syndrome, history of atrial fibrillation, hypertension, history of breast cancer status post right mastectomy in 2003, history of macrocytic anemia who presents to [facility] emergency department after having a syncopal episode in the [facility]. Apparently the patient walked from her personal snf to the [facility]. She was talking with the people in the restaurant and she was subsequently found face down at her table. When the paramedics arrived the patient had a pulse of 94 a blood pressure of 160/100 mmHg and she was in sinus rhythm. The patient was alert to painful stimuli. Her skin was diaphoretic. During this hospitalization the patient has had multiple intermittent episodes of coarse atrial fibrillation versus atrial flutter with a rapid ventricular response and sinus rhythm. The patient had an MRI/MRA of the brain which was negative for acute stroke or intracranial vascular event. In the emergency department the patient did have a elevated white count of 17.3 a potassium of 5.1 her creatinine went up to 2.1, her AST was 420 and ALT was 532. All of these numbers have normalized. This is likely secondary to prerenal/dehydration. Past History Past Medical History: atrial fib, arrhythmia, anemia, heart failure, hypertension, other (Dementia, parkinsons, schizophrenia) Past Surgical History: Other (Right Mastectomy) Social history: other (Lives in Personal Assisted). denies: smoking, alcohol abuse, prescription drug abuse Family history: hypertension Medications and Allergies Allergies Allergy/AdvReac Type Severity Reaction Status Date / Time morphine Allergy Unknown Verified 02/21/17 18:06 Home Medications Medication Instructions Recorded Confirmed Last Taken Type Metoprolol Xl [Metoprolol 50 mg PO QDAY tablet 02/26/17 Unknown Rx SUCCINATE ER TAB] Rivaroxaban [Xarelto] 20 mg PO QDAY #1 tablet 02/26/17 Unknown Rx Rivaroxaban [Xarelto] 20 mg PO QDAY #30 tab 02/26/17 Unknown Rx Simvastatin [Zocor TAB] 20 mg PO QHS tablet 02/26/17 Unknown Rx oxyCODONE /ACETAMINOPHEN [Percocet 1 tab PO Q6H PRN #7 tablet 02/26/17 Unknown Rx 5/325 mg] Active Meds: Active Medications Acetaminophen (Tylenol) 650 mg PO Q4H PRN PRN Reason: Pain MILD(1-3)/Fever >100.5/COSTA Last Admin: 02/23/17 20:50 Dose: 650 mg Bisacodyl (Dulcolax) 10 mg [place] QDAY PRN PRN Reason: Constipation unrelieved by [facility] Famotidine (Pepcid) 20 mg PO BID [facility] Last Admin: 02/26/17 09:26 Dose: 20 mg Hydromorphone HCl (Dilaudid) 0.5 mg IV Q3H PRN PRN Reason: Pain , Severe (7-10) Last Admin: 02/22/17 01:07 Dose: 0.5 mg Ceftriaxone Sodium (Rocephin/Ns 2 Gm/100 Ml) 2 gm in 100 mls @ 200 mls/hr IV Q24HR [facility] PRN Reason: Protocol Last Admin: 02/26/17 09:27 Dose: 200 mls/hr Lisinopril (Zestril) 10 mg PO QDAY [facility] Magnesium Hydroxide (Milk Of Magnesia) 30 ml PO Q4H PRN PRN Reason: Constipation Metoprolol Succinate (Toprol Xl) 50 mg PO QDAY [facility] Metoprolol Tartrate (Lopressor) 25 mg PO TID [facility] Stop: 02/27/17 01:00 Last Admin: 02/26/17 14:04 Dose: 25 mg Ondansetron HCl (Zofran) 4 mg IV Q8H PRN PRN Reason: N/V unrelieved by Reglan Oxycodone/Acetaminophen (Percocet 5/325) 1 tab PO Q6H PRN PRN Reason: Pain, Moderate (4-6) Rivaroxaban (Xarelto) 20 mg PO QDAY [facility] PRN Reason: Protocol Simvastatin (Zocor) 20 mg PO QHS [facility] Last Admin: 02/25/17 21:19 Dose: 20 mg Sodium Chloride (Sodium Chloride Flush Syringe 10 Ml) 10 ml IV PRN PRN PRN Reason: LINE FLUSH Review of Systems Constitutional: no weight loss, no weight gain, no fever, no chills Ears, nose, mouth and throat: no ear pain, no ear discharge Breasts: deferred Cardiovascular: syncope, no chest pain, no orthopnea, no palpitations, no dyspnea on exertion Respiratory: no excessive sputum, no hemoptysis Gastrointestinal: no abdominal pain, no nausea, no vomiting Rectal: no pain, no incontinence Musculoskeletal: no neck stiffness, no neck pain Integumentary: no rash, no pruritis Neurological: no head injury, no transient paralysis, no paralysis Psychiatric: paranoia Endocrine: no polydipsia, no polyuria Hematologic/Lymphatic: no easy bruising, no easy bleeding Physical Examination Vital Signs Pulse Resp BP Pulse Ox 76 22 168/113 99 02/21/17 18:32 02/21/17 18:32 02/21/17 18:32 02/21/17 18:32 General appearance: no acute distress HEENT: Positive: PERRL, EOMI Neck: Positive: neck supple, trachea midline Cardiac: Positive: Irregularly Regular, Tachycardia Lungs: Positive: clear to auscultation, Normal Breath Sounds Neuro: Positive: Grossly Intact Abdomen: Positive: Unremarkable, Soft, Active Bowel Sounds Female genitourinary: deferred Skin: Negative: Rash, Suspicious Lesions Extremities: Present: edema, warm Results 02/26/17 03:17 02/26/17 03:17 Cardiac Enzymes 02/26/17 Range/Units 03:17 AST 63 H (5-40) units/L CBC 02/26/17 Range/Units 03:17 WBC 10.8 (4.5-11.0) K/mm3 RBC 4.50 (3.65-5.03) M/mm3 Hgb 13.1 (10.1-14.3) gm/dl Hct 40.0 (30.3-42.9) % Plt Count 176 (140-440) K/mm3 Lymph # Office Receptionist Comprehensive Metabolic Panel 02/26/17 Range/Units 03:17 Sodium 135 L (137-145) mmol/L Potassium 4.4 (3.6-5.0) mmol/L Chloride 97.1 L (98-107) mmol/L Carbon Dioxide 20 L D (22-30) mmol/L BUN 18 H (7-17) mg/dL Creatinine 1.0 (0.7-1.2) mg/dL Glucose 115 H (65-100) mg/dL Calcium 9.4 (8.4-10.2) mg/dL Direct Bilirubin < 0.2 (0-0.2) mg/dL AST 63 H (5-40) units/L ALT 349 H (7-56) units/L Alkaline Phosphatase 104 (35-129) units/L Total Protein 7.1 (6.3-8.2) g/dL Albumin 3.5 L (3.9-5) g/dL - Imaging and Cardiology Stress echo: report reviewed (MPI 07/27: 1. no ischemia, EF 54%) Echo: report reviewed (ECHO 12/25: EF 30-35%, mod MR) EKG interpretations - Telemetry EKG Rhythm: Atrial Flutter Assessment and Plan 61 Female Syncope/Altered Mental status Unclear etiology Monitor on telemetry Given history of dilated cardiomyopathy concern for sustained ventricular arrhythmias After reviewing the patient's previous medical record at [facility] it appears that she has a known history of a dilated cardiomyopathy however given the patient's history of schizophrenia/dementia/psychosis she may not be an ideal candidate for cardiac defibrillator implantation. Her cardiomyopathy is likely tachycardia induced, recommend rate control management with beta fatimah She is normally followed at [facility] for cardiology May consider Life[facility]est however concerned the patient may not wear the jacket given her psychiatric history Afib/Aflutter RVR Continue oral anticoagulation as long as the patient is monitor for compliance and her personal snf Agree with beta fatimah which changed to metoprolol succinate, attempt to titrate Acute Kidney Injury Resolved History of Schizophrenia/Dementia/Pyschosis Dilated Cardiomyopathy EF 35-40% Likely tachycardia induced Atrial fibrillation Hypertension History of Breast CA s/p Right mastectomy 2003 History of macrocytic anemia
[2017-02-26] MEDS: XARELTO PO SCH (16:39)
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
[2017-02-26] MEDS: ZOCOR PO SCH (21:45)
[2017-02-27 06:00] LABS: Hematocrit 40.6 % (30.3-42.9); Hemoglobin 13.3 gm/dl (10.1-14.3)
[2017-02-27 06:10] LABS: Anion Gap 18 mmol/L; BUN/Creatinine Ratio 18.88; Blood Urea Nitrogen 17 mg/dL (7-17); Calcium 9.5 mg/dL (8.4-10.2); Carbon Dioxide 22 mmol/L (22-30); Chloride 100.3 mmol/L (98-107); Glucose 105 mg/dL (65-100); Potassium 4.7 mmol/L (3.6-5.0); Sodium 136 mmol/L (137-145)
--- NOTE | 2017-02-27 08:05 | Progress Note ---
Assessment and Plan - Patient Problems (1) MARIBEL (acute kidney injury) Current Visit: Yes Status: Acute Plan to address problem: MARIBEL likely hemodynamically mediated in the setting of volume depletion and ? sepsis. Renal function has improved. (2) Hyperkalemia Current Visit: Yes Status: Acute Plan to address problem: Mild hyperkalemia secondary to MARIBEL. Improved now. (3) Acidosis, lactic Current Visit: Yes Status: Acute Plan to address problem: Improved. (4) Encephalopathy Current Visit: Yes Status: Acute Plan to address problem: Improving. (5) Elevated liver enzymes Current Visit: Yes Status: Acute Plan to address problem: Improving. (6) Hyperglycemia Current Visit: Yes Status: Acute Subjective Date of service: 02/27/17 Principal diagnosis: paroxysmal atrial flutter with RVR; syncope; CMP Interval history: Patient is feeling better. Objective - Vital Signs Vital signs: Vital Signs - 12hr 02/26/17 02/27/17 02/27/17 22:00 00:41 05:06 Temperature 98.5 F 98.6 F Pulse Rate 100 H Pulse Rate [ 70 80 Left Radial] Respiratory 22 18 Rate Blood Pressure 176/108 140/96 [Left Arm] O2 Sat by Pulse 99 98 Oximetry 02/27/17 07:56 Temperature 97.8 F Pulse Rate Pulse Rate [ 85 Left Radial] Respiratory 18 Rate Blood Pressure 171/95 [Left Arm] O2 Sat by Pulse 97 Oximetry - General Appearance General appearance: well-developed, well-nourished, appears stated age, obese, other (no distress) EENT: ATNC, PERRL, mucous membranes moist, hearing intact Neck: supple Respiratory: Present: Clear to Ascultation Cardiology: S1S2, no murmurs Gastrointestinal: normoactive bowel sounds, no tenderness, obese Integumentary: no rash Neurologic: no focal deficit, no asterixis Musculoskeletal: other (no edema) Psychiatric: mood/affect appropriate, cooperative - Lab 02/27/17 05:11 02/27/17 05:11 Most recent lab results Calcium 9.5 mg/dL (8.4-10.2) 02/27/17 05:11 Magnesium 2.30 mg/dL (1.7-2.3) 02/21/17 18:30
[2017-02-27] MEDS: ZESTRIL PO SCH (10:07)
[2017-02-27] MEDS: PEPCID PO SCH ×2 (10:07→22:30)
[2017-02-27] MEDS: XARELTO PO SCH (10:07)
[2017-02-27] MEDS: ROCEPHIN/NS 2 GM/100 ML 2 GM/100 ML BAG IV SCH (10:07)
[2017-02-27] MEDS: TOPROL XL PO SCH (10:07)
--- NOTE | 2017-02-27 10:33 | Progress Note ---
Assessment and Plan Assessment: Paroxysmal atrial fibrillation with RVR --> CVR Syncope / encephalopathy - CT head/MRI/MRA and carotid studies negative; neurology following. Acute sinusitis / ? sepsis CMP - EF 35%; presumably nonischemic in setting of negative lexiscan MPI 07/2016 ; Cont BB and ACEI. MARIBEL / hyperkalemia - improved. Transaminitis HTN Schizophrenia Dementia ? Parkinson's H/o breast CA Plan: Cont Xarelto and Toprol XL. EP consult noted. Indications, potential risks, and benefits of LifeVest reviewed with pt at bedside. She states that she is agreeable to wearing LifeVest. LifeVest ordered. As recommended per EP, will plan for OP follow up and possible EP study with [facility] per pt request and where pt has established care. Pt is agreeable to this plan. Currently stable cardiac status. Pending LifeVest placement, pt may discharge from cardiology standpoint. Follow up at [facility] on 03/19/2017 @ 9:40AM. The patient has been seen in conjunction with Dr. Shah who agrees with the assessment and plan of care. Subjective Date of service: 02/27/17 Principal diagnosis: paroxysmal atrial flutter with RVR; syncope; CMP Interval history: Pt resting comfortably in bed, no complaints. Objective Last Vital Signs Temp 97.8 F 02/27/17 07:56 Pulse 96 H 02/27/17 09:54 Resp 18 02/27/17 07:56 BP 171/95 02/27/17 07:56 Pulse Ox 97 02/27/17 07:56 - Physical Examination General: Appears Well HEENT: Positive: PERRL, EOMI Neck: Positive: neck supple, trachea midline Cardiac: Positive: irregularly irregular, S1/S2 Lungs: Positive: clear to auscultation Neuro: Positive: Grossly Intact Abdomen: Positive: Unremarkable, Soft, Active Bowel Sounds Skin: Negative: Rash, Suspicious Lesions Musculoskeletal: No Fluid Collection, No Pain, Normal Range of Motion Extremities: Present: edema, warm - Labs and Meds CBC 02/27/17 Range/Units 05:11 Hgb 13.3 (10.1-14.3) gm/dl Hct 40.6 (30.3-42.9) % Plt Count 194 (140-440) K/mm3 Comprehensive Metabolic Panel 02/27/17 Range/Units 05:11 Sodium 136 L (137-145) mmol/L Potassium 4.7 (3.6-5.0) mmol/L Chloride 100.3 (98-107) mmol/L Carbon Dioxide 22 (22-30) mmol/L BUN 17 (7-17) mg/dL Creatinine 0.9 (0.7-1.2) mg/dL Glucose 105 H (65-100) mg/dL Calcium 9.5 (8.4-10.2) mg/dL - Imaging and Cardiology EKG: report reviewed, image reviewed Stress echo: report reviewed (MPI 07/27: 1. no ischemia, EF 54%) Echo: report reviewed (ECHO 12/25: EF 30-35%, mod MR) - Telemetry EKG Rhythm: Atrial Flutter Repolarization changes or abnormalities: ST or T wave suggestive of ischemia ( anterolateral t-wave inversions)
--- NOTE | 2017-02-27 15:56 | Progress Note ---
Assessment and Plan Assessment and plan: 61-year-old Afro-[place] female with a history of schizophrenia, Parkinson's and dementia presents to the emergency department after being found unresponsive at [facility]. The patient apparently left her personal retirement along with a walker and walked [facility]. The patient allegedly was ambulatory, jovial and social with the workers at [facility]. She ordered her food and ate and then all of a sudden about 1.5 hours ago she was found face down unresponsive at her table. She is now back to her jovial self and feels well Afib with RVR with cardiac arrest cardiology input appreciated -continue rate control meds, Toprol XL -was on heparin gtt, now transitioned to Xarelto -recent MPI in 07/27 was negative -EP input appreciated for lifevest prior to dc Chronic systolic CHF; NICM Continue MACEY and Beta fatimah Sepsis. Resolving. Follow-up blood, urine and sputum cultures. Cultures thus far negative. Etiology is secondary to sinusitis/mastoiditis. continue abx For one more day to complete 7 course Acute sinusitis/mastoiditis. Continue antibiotics as above. Acute Metobolic encephalopathy. Resolved. Acute CVA was ruled out, MR brain negative Lactic acidosis. Etiology secondary to sepsis, now resolve. Acute renal failure/Hyperkalemia. Resolved. Etiology likely secondary to acute kidney injury from sepsis and vasomotor nephropathy, nephropathy input appreciated, Now resolved. Elevated LFTs. Etiology likely secondary to ischemic hepatitis from cardiac arrest, now resolved Schizophrenia/Parkinsons dementia. now stable and pleasant, will need SNF placement DVT prophylaxis. fully anticoagulated. History Interval history: no events overnight, calm and cooperative Hospitalist Physical - Physical exam Narrative exam: General appearance: Present: no acute distress, well-nourished - EENT Eyes: Present: PERRL, EOM intact ENT: hearing intact, clear oral mucosa - Neck Neck: Present: supple, normal ROM - Respiratory Respiratory effort: normal Respiratory: bilateral: CTA - Cardiovascular Heart Sounds: Present: S1 & S2 - Extremities Extremities: no ischemia, No edema Peripheral Pulses: within normal limits - Abdominal General gastrointestinal: soft, non-tender, non-distended, normal bowel sounds - Integumentary Integumentary: Present: clear, warm, dry - Psychiatric Psychiatric: no intact judgment & insight, other (demented) - Neurologic Neurologic: CNII-XII intact, no focal deficits, moves all extremities - Constitutional Vitals: Temp Pulse Resp BP Pulse Ox 97.9 F 89 18 162/84 98 02/27/17 12:20 02/27/17 12:20 02/27/17 12:20 02/27/17 12:20 02/27/17 12:20 General appearance: Present: no acute distress Results - Labs CBC & Chem 7: 02/27/17 05:11 02/27/17 05:11 Labs: Laboratory Last Values WBC 10.8 K/mm3 (4.5-11.0) 02/26/17 03:17 RBC 4.50 M/mm3 (3.65-5.03) 02/26/17 03:17 Hgb 13.3 gm/dl (10.1-14.3) 02/27/17 05:11 Hct 40.6 % (30.3-42.9) 02/27/17 05:11 MCV 89 fl (79-97) 02/26/17 03:17 MCH 29 pg (28-32) 02/26/17 03:17 MCHC 33 % (30-34) 02/26/17 03:17 RDW 15.4 % (13.2-15.2) H 02/26/17 03:17 Plt Count 194 K/mm3 (140-440) 02/27/17 05:11 Lymph % (Auto) 45.1 % (13.4-35.0) H 02/25/17 05:12 [place] % (Auto) 10.9 % (0.0-7.3) H 02/25/17 05:12 Eos % (Auto) 1.8 % (0.0-4.3) 02/25/17 05:12 Baso % (Auto) 0.8 % (0.0-1.8) 02/25/17 05:12 Lymph # Coordinator Of Online Programs 02/26/17 03:17 [place] # 1.0 K/mm3 (0.0-0.8) H 02/25/17 05:12 Eos # 0.2 K/mm3 (0.0-0.4) 02/25/17 05:12 Baso # 0.1 K/mm3 (0.0-0.1) 02/25/17 05:12 Add Manual Diff Complete 02/26/17 03:17 Total Counted 100 02/26/17 03:17 Seg Neutrophils % 41.4 % (40.0-70.0) 02/25/17 05:12 Seg Neuts % (Manual) 49.0 % (40.0-70.0) 02/26/17 03:17 Band Neutrophils % 0 % 02/26/17 03:17 Lymphocytes % (Manual) 43.0 % (13.4-35.0) H 02/26/17 03:17 Reactive Lymphs % (Man) 0 % 02/26/17 03:17 Monocytes % (Manual) 8.0 % (0.0-7.3) H 02/26/17 03:17 Eosinophils % (Manual) 0 % (0.0-4.3) 02/26/17 03:17 Basophils % (Manual) 0 % (0.0-1.8) 02/26/17 03:17 Metamyelocytes % 0 % 02/26/17 03:17 Myelocytes % 0 % 02/26/17 03:17 Promyelocytes % 0 % 02/26/17 03:17 Blast Cells % 0 % 02/26/17 03:17 Nucleated RBC % Not Reportable 02/26/17 03:17 Seg Neutrophils # 3.7 K/mm3 (1.8-7.7) 02/25/17 05:12 Seg Neutrophils # Man 5.3 K/mm3 (1.8-7.7) 02/26/17 03:17 Band Neutrophils # 0.0 K/mm3 02/26/17 03:17 Lymphocytes # (Manual) 4.6 K/mm3 (1.2-5.4) 02/26/17 03:17 Abs React Lymphs (Man) 0.0 K/mm3 02/26/17 03:17 Monocytes # (Manual) 0.9 K/mm3 (0.0-0.8) H 02/26/17 03:17 Eosinophils # (Manual) 0.0 K/mm3 (0.0-0.4) 02/26/17 03:17 Basophils # (Manual) 0.0 K/mm3 (0.0-0.1) 02/26/17 03:17 Metamyelocytes # 0.0 K/mm3 02/26/17 03:17 Myelocytes # 0.0 K/mm3 02/26/17 03:17 Promyelocytes # 0.0 K/mm3 02/26/17 03:17 Blast Cells # 0.0 K/mm3 02/26/17 03:17 WBC Morphology Not Reportable 02/26/17 03:17 Hypersegmented Neuts Not Reportable 02/26/17 03:17 Hyposegmented Neuts Not Reportable 02/26/17 03:17 Hypogranular Neuts Not Reportable 02/26/17 03:17 Smudge Cells Not Reportable 02/26/17 03:17 Toxic Granulation Not Reportable 02/26/17 03:17 Toxic Vacuolation Not Reportable 02/26/17 03:17 Dohle Bodies Not Reportable 02/26/17 03:17 Pelger-Huet Anomaly Not Reportable 02/26/17 03:17 Zoran Rods Not Reportable 02/26/17 03:17 Platelet Estimate Consistent w auto 02/26/17 03:17 Clumped Platelets Not Reportable 02/26/17 03:17 Plt Clumps, EDTA Not Reportable 02/26/17 03:17 Large Platelets Not Reportable 02/26/17 03:17 Giant Platelets Not Reportable 02/26/17 03:17 Platelet Satelliting Not Reportable 02/26/17 03:17 Plt Morphology Comment Not Reportable 02/26/17 03:17 RBC Morphology Normal 02/26/17 03:17 Dimorphic RBCs Not Reportable 02/26/17 03:17 Polychromasia Not Reportable 02/26/17 03:17 Hypochromasia Not Reportable 02/26/17 03:17 Poikilocytosis Not Reportable 02/26/17 03:17 Anisocytosis Not Reportable 02/26/17 03:17 Microcytosis Not Reportable 02/26/17 03:17 Macrocytosis Not Reportable 02/26/17 03:17 Spherocytes Not Reportable 02/26/17 03:17 Pappenheimer Bodies Not Reportable 02/26/17 03:17 Sickle Cells Not Reportable 02/26/17 03:17 Target Cells Not Reportable 02/26/17 03:17 Tear Drop Cells Not Reportable 02/26/17 03:17 Ovalocytes Not Reportable 02/26/17 03:17 Helmet Cells Not Reportable 02/26/17 03:17 [place] Bodies Not Reportable 02/26/17 03:17 [place] Rings Not Reportable 02/26/17 03:17 [place] Cells Not Reportable 02/26/17 03:17 Bite Cells Not Reportable 02/26/17 03:17 Crenated Cell Not Reportable 02/26/17 03:17 Elliptocytes Not Reportable 02/26/17 03:17 Acanthocytes (Spur) Not Reportable 02/26/17 03:17 Rouleaux Not Reportable 02/26/17 03:17 Hemoglobin C Crystals Not Reportable 02/26/17 03:17 Schistocytes Not Reportable 02/26/17 03:17 Malaria parasites Not Reportable 02/26/17 03:17 Richard Bodies Not Reportable 02/26/17 03:17 Hem Pathologist Commnt No 02/26/17 03:17 PT 12.6 Sec. (12.2-14.9) 02/25/17 13:53 INR 0.95 (0.87-1.13) 02/25/17 13:53 APTT 25.2 Sec. (24.2-36.6) 02/25/17 13:53 Heparin Anti-Xa Level 0.21 U.I./ml (0.3-0.7) L 02/26/17 05:25 POC ABG pH 7.422 (7.35-7.45) 02/21/17 19:29 POC ABG pCO2 23.5 (35-45) L 02/21/17 19:29 POC ABG pO2 57 (80-105) L 02/21/17 19:29 POC ABG HCO3 15.3 02/21/17 19:29 POC ABG Total CO2 16 02/21/17 19:29 POC ABG O2 Sat 91 02/21/17 19:29 POC ABG Base Excess -9 02/21/17 19:29 FiO2 32 % 02/21/17 19:29 Sodium 136 mmol/L (137-145) L 02/27/17 05:11 Potassium 4.7 mmol/L (3.6-5.0) 02/27/17 05:11 Chloride 100.3 mmol/L (98-107) 02/27/17 05:11 Carbon Dioxide 22 mmol/L (22-30) 02/27/17 05:11 Anion Gap 18 mmol/L 02/27/17 05:11 BUN 17 mg/dL (7-17) 02/27/17 05:11 Creatinine 0.9 mg/dL (0.7-1.2) 02/27/17 05:11 Estimated GFR > 60 ml/min 02/27/17 05:11 BUN/Creatinine Ratio 18.88 % 02/27/17 05:11 Glucose 105 mg/dL (65-100) H 02/27/17 05:11 POC Glucose 125 (70-105) H 02/26/17 20:55 Hemoglobin A1c 5.9 % (4-6) 02/21/17 18:12 Lactic Acid 1.30 mmol/L (0.7-2.0) 02/23/17 20:35 Calcium 9.5 mg/dL (8.4-10.2) 02/27/17 05:11 Magnesium 2.30 mg/dL (1.7-2.3) 02/21/17 18:30 Total Bilirubin 0.30 mg/dL (0.1-1.2) 02/26/17 03:17 Direct Bilirubin < 0.2 mg/dL (0-0.2) 02/26/17 03:17 Indirect Bilirubin 0.2 mg/dL 02/23/17 20:50 AST 63 units/L (5-40) H 02/26/17 03:17 ALT 349 units/L (7-56) H 02/26/17 03:17 Alkaline Phosphatase 104 units/L (35-129) 02/26/17 03:17 Ammonia 60.0 umol/L (25-60) 02/21/17 18:30 Total Creatine Kinase 119 units/L (30-135) 02/21/17 19:36 Total Protein 7.1 g/dL (6.3-8.2) 02/26/17 03:17 Albumin 3.5 g/dL (3.9-5) L 02/26/17 03:17 Albumin/Globulin Ratio 1.0 % 02/26/17 03:17 Triglycerides 65 mg/dL (2-149) 02/22/17 03:39 Cholesterol 228 mg/dL (50-199) H 02/22/17 03:39 LDL Cholesterol Direct 156 mg/dL (50-130) H 02/22/17 03:39 HDL Cholesterol 59 mg/dL (40-59) 02/22/17 03:39 Cholesterol/HDL Ratio 3.86 % 02/22/17 03:39 TSH 4.100 mlU/mL (0.270-4.200) 02/21/17 18:30 Salicylates < 0.3 mg/dL (2.8-20.0) L 02/21/17 18:12 Acetaminophen < 15.0 ug/mL (10.0-30.0) 02/21/17 18:12 Plasma/Serum Alcohol < 0.01 gm% (0-0.07) 02/21/17 18:12 Hepatitis A IgM Ab Non-reactive (NonReactive) 02/22/17: Hep Bs Antigen Non-reactive (Negative) 02/22/17 Hep B Core IgM Ab Non-reactive (NonReactive) 02/22/17 17: Hepatitis C Antibody Non-reactive (NonReactive) 02/22/17 17:
--- NOTE | 2017-02-27 18:59 | Progress Note ---
Subjective - Reason for Consult Consult date: 02/27/17 Reason for consult: follow up - Chief Complaint Chief complaint: "Hey " 61-year-old Afro-[place] female with a history of schizophrenia. Today patient is calm and cooperative during the assessment. She continues to expressed paranoid ideation. She is interacting appropriately with staff on a superficial level. She is attending to her ADLS. She remembers being on an antipsychotic. She denies SI/HI's and AVH's. Mental Status Exam - Vital signs Last Vital Signs Temp 98.0 F 02/27/17 16:00 Pulse 95 H 02/27/17 16:00 Resp 18 02/27/17 16:00 BP 157/98 02/27/17 16:00 Pulse Ox 100 02/27/17 16:00 - Exam Narrative exam: - Exam Orientation: person, place, person Affect: labile Mood: congruent with affect Thought content: delusions, paranoia Thought Process: Tangential Perceptions: none Speech: pressured Concentration: focused Motor activity: normal Level of consciousness: alert Memory: Recent Impaired, Remote Impaired Sleep Symptoms: None Interaction: argumentative Assessment and Plan Impression: Psychosis present in the form of paranoid delusions Dementia is present Recommendations: Stelazine (Trifluoperazine) was not available. Consider an alternative. The patient is opposed to haldol. Start Prolixin 5mg hs for psychotic symptoms. technical services manager/case management involvement is necessary to determine living arrangements and an appropriate disposition.
[2017-02-27] MEDS: ZOCOR PO SCH (22:30)
[2017-02-27] MEDS: PROLIXIN HCL PO SCH (22:30)
[2017-02-28 06:00] LABS: Anion Gap 18 mmol/L; BUN/Creatinine Ratio 23.75; Blood Urea Nitrogen 19 mg/dL (7-17); Calcium 9.9 mg/dL (8.4-10.2); Carbon Dioxide 22 mmol/L (22-30); Chloride 97.7 mmol/L (98-107); Glucose 110 mg/dL (65-100); Potassium 4.7 mmol/L (3.6-5.0); Sodium 133 mmol/L (137-145)
--- NOTE | 2017-02-28 08:26 | Progress Note ---
Assessment and Plan - Patient Problems (1) MARIBEL (acute kidney injury) Current Visit: Yes Status: Acute Plan to address problem: MARIBEL likely hemodynamically mediated in the setting of volume depletion and ? sepsis. Renal function has improved. (2) Hyperkalemia Current Visit: Yes Status: Acute Plan to address problem: Mild hyperkalemia secondary to MARIBEL. Improved now. (3) Acidosis, lactic Current Visit: Yes Status: Acute Plan to address problem: Improved. (4) Encephalopathy Current Visit: Yes Status: Acute Plan to address problem: Followed by Psychiatry. (5) Elevated liver enzymes Current Visit: Yes Status: Acute (6) Hyperglycemia Current Visit: Yes Status: Acute Subjective Date of service: 02/28/17 Principal diagnosis: paroxysmal atrial flutter with RVR; syncope; CMP Interval history: Patient is feeling better. Objective - Vital Signs Vital signs: Vital Signs - 12hr 02/27/17 02/28/17 02/28/17 22:00 00:00 04:20 Temperature 98.6 F 98.2 F Pulse Rate 100 H Pulse Rate [ 90 104 H Apical] Pulse Rate [ 90 104 H Left Radial] Respiratory 18 20 18 Rate Blood Pressure 118/77 160/102 [Left Arm] O2 Sat by Pulse 97 98 Oximetry - General Appearance General appearance: well-developed, well-nourished, appears stated age, obese, other (no distress) EENT: ATNC, PERRL, mucous membranes moist, hearing intact Neck: supple Respiratory: Present: Clear to Ascultation Cardiology: regular, S1S2, no murmurs Gastrointestinal: normoactive bowel sounds, no tenderness, obese Integumentary: no rash Neurologic: no focal deficit, no asterixis Musculoskeletal: other (no edema) Psychiatric: mood/affect appropriate, cooperative - Lab 02/27/17 05:11 02/28/17 04:41 Most recent lab results Calcium 9.9 mg/dL (8.4-10.2) 02/28/17 04:41 Magnesium 2.30 mg/dL (1.7-2.3) 02/21/17 18:30
[2017-02-28] MEDS: ROCEPHIN/NS 2 GM/100 ML 2 GM/100 ML BAG IV SCH (10:07)
[2017-02-28] MEDS: TOPROL XL PO SCH (10:08)
[2017-02-28] MEDS: ZESTRIL PO SCH (10:08)
[2017-02-28] MEDS: XARELTO PO SCH (10:08)
[2017-02-28] MEDS: PEPCID PO SCH ×2 (10:09→21:55)
--- NOTE | 2017-02-28 14:22 | Progress Note ---
Assessment and Plan Assessment and plan: 61-year-old Afro-[place]ux[place]bour[place] female with a history of schizophrenia, Parkinson's and dementia presents to the emergency department after being found unresponsive at [facility]. The patient apparently left her personal chcf along with a walker and walked [facility]. The patient allegedly was ambulatory, jovial and social with the workers at [facility]. She ordered her food and ate and then all of a sudden about 1.5 hours ago she was found face down unresponsive at her table. She is now back to her jovial self and feels well Afib with RVR with cardiac arrest cardiology input appreciated -continue rate control meds, Toprol XL -was on heparin gtt, now transitioned to Xarelto -recent MPI in 07/27 was negative -EP input appreciated for lifevest prior to dc -Has appointment for follow-up at [facility] on 03/19/17 at 9:40 AM Chronic systolic CHF; NICM Continue MACEY and Beta fatimah Sepsis. Resolved. Follow-up blood, urine and sputum cultures. Cultures thus far negative. Etiology is secondary to sinusitis/mastoiditis. Has completed 7 day course of antibiotics. Acute sinusitis/mastoiditis. As above Acute Metobolic encephalopathy. Resolved. Acute CVA was ruled out, MR brain negative Lactic acidosis. Etiology secondary to sepsis, now resolve. Acute renal failure/Hyperkalemia. Resolved. Etiology likely secondary to acute kidney injury from sepsis and vasomotor nephropathy, nephropathy input appreciated, Now resolved. Elevated LFTs. Etiology likely secondary to ischemic hepatitis from cardiac arrest, now resolved Schizophrenia/Parkinsons dementia with psychosis. now stable and pleasant, will need SNF placement Prolixin was started by mental health DVT prophylaxis. fully anticoagulated. History Interval history: no events overnight, calm and cooperative Hospitalist Physical - Physical exam Narrative exam: General appearance: Present: no acute distress, well-nourished - EENT Eyes: Present: PERRL, EOM intact ENT: hearing intact, clear oral mucosa - Neck Neck: Present: supple, normal ROM - Respiratory Respiratory effort: normal Respiratory: bilateral: CTA - Cardiovascular Heart Sounds: Present: S1 & S2 - Extremities Extremities: no ischemia, No edema Peripheral Pulses: within normal limits - Abdominal General gastrointestinal: soft, non-tender, non-distended, normal bowel sounds - Integumentary Integumentary: Present: clear, warm, dry - Psychiatric Psychiatric: no intact judgment & insight, other (demented) - Neurologic Neurologic: CNII-XII intact, no focal deficits, moves all extremities - Constitutional Vitals: Temp Pulse Resp BP Pulse Ox 97.8 F 102 H 20 130/95 98 02/28/17 13:01 02/28/17 13:01 02/28/17 13:01 02/28/17 13:01 02/28/17 13:01 General appearance: Present: no acute distress Results - Labs CBC & Chem 7: 02/27/17 05:11 02/28/17 04:41 Labs: Laboratory Last Values WBC 10.8 K/mm3 (4.5-11.0) 02/26/17 03:17 RBC 4.50 M/mm3 (3.65-5.03) 02/26/17 03:17 Hgb 13.3 gm/dl (10.1-14.3) 02/27/17 05:11 Hct 40.6 % (30.3-42.9) 02/27/17 05:11 MCV 89 fl (79-97) 02/26/17 03:17 MCH 29 pg (28-32) 02/26/17 03:17 MCHC 33 % (30-34) 02/26/17 03:17 RDW 15.4 % (13.2-15.2) H 02/26/17 03:17 Plt Count 194 K/mm3 (140-440) 02/27/17 05:11 Lymph % (Auto) 45.1 % (13.4-35.0) H 02/25/17 05:12 Cobb % (Auto) 10.9 % (0.0-7.3) H 02/25/17 05:12 Eos % (Auto) 1.8 % (0.0-4.3) 02/25/17 05:12 Baso % (Auto) 0.8 % (0.0-1.8) 02/25/17 05:12 Lymph # Fuel Yard Operator 02/26/17 03:17 Cobb # 1.0 K/mm3 (0.0-0.8) H 02/25/17 05:12 Eos # 0.2 K/mm3 (0.0-0.4) 02/25/17 05:12 Baso # 0.1 K/mm3 (0.0-0.1) 02/25/17 05:12 Add Manual Diff Complete 02/26/17 03:17 Total Counted 100 02/26/17 03:17 Seg Neutrophils % 41.4 % (40.0-70.0) 02/25/17 05:12 Seg Neuts % (Manual) 49.0 % (40.0-70.0) 02/26/17 03:17 Band Neutrophils % 0 % 02/26/17 03:17 Lymphocytes % (Manual) 43.0 % (13.4-35.0) H 02/26/17 03:17 Reactive Lymphs % (Man) 0 % 02/26/17 03:17 Monocytes % (Manual) 8.0 % (0.0-7.3) H 02/26/17 03:17 Eosinophils % (Manual) 0 % (0.0-4.3) 02/26/17 03:17 Basophils % (Manual) 0 % (0.0-1.8) 02/26/17 03:17 Metamyelocytes % 0 % 02/26/17 03:17 Myelocytes % 0 % 02/26/17 03:17 Promyelocytes % 0 % 02/26/17 03:17 Blast Cells % 0 % 02/26/17 03:17 Nucleated RBC % Not Reportable 02/26/17 03:17 Seg Neutrophils # 3.7 K/mm3 (1.8-7.7) 02/25/17 05:12 Seg Neutrophils # Man 5.3 K/mm3 (1.8-7.7) 02/26/17 03:17 Band Neutrophils # 0.0 K/mm3 02/26/17 03:17 Lymphocytes # (Manual) 4.6 K/mm3 (1.2-5.4) 02/26/17 03:17 Abs React Lymphs (Man) 0.0 K/mm3 02/26/17 03:17 Monocytes # (Manual) 0.9 K/mm3 (0.0-0.8) H 02/26/17 03:17 Eosinophils # (Manual) 0.0 K/mm3 (0.0-0.4) 02/26/17 03:17 Basophils # (Manual) 0.0 K/mm3 (0.0-0.1) 02/26/17 03:17 Metamyelocytes # 0.0 K/mm3 02/26/17 03:17 Myelocytes # 0.0 K/mm3 02/26/17 03:17 Promyelocytes # 0.0 K/mm3 02/26/17 03:17 Blast Cells # 0.0 K/mm3 02/26/17 03:17 WBC Morphology Not Reportable 02/26/17 03:17 Hypersegmented Neuts Not Reportable 02/26/17 03:17 Hyposegmented Neuts Not Reportable 02/26/17 03:17 Hypogranular Neuts Not Reportable 02/26/17 03:17 Smudge Cells Not Reportable 02/26/17 03:17 Toxic Granulation Not Reportable 02/26/17 03:17 Toxic Vacuolation Not Reportable 02/26/17 03:17 Dohle Bodies Not Reportable 02/26/17 03:17 Pelger-Huet Anomaly Not Reportable 02/26/17 03:17 Zoran Rods Not Reportable 02/26/17 03:17 Platelet Estimate Consistent w auto 02/26/17 03:17 Clumped Platelets Not Reportable 02/26/17 03:17 Plt Clumps, EDTA Not Reportable 02/26/17 03:17 Large Platelets Not Reportable 02/26/17 03:17 Giant Platelets Not Reportable 02/26/17 03:17 Platelet Satelliting Not Reportable 02/26/17 03:17 Plt Morphology Comment Not Reportable 02/26/17 03:17 RBC Morphology Normal 02/26/17 03:17 Dimorphic RBCs Not Reportable 02/26/17 03:17 Polychromasia Not Reportable 02/26/17 03:17 Hypochromasia Not Reportable 02/26/17 03:17 Poikilocytosis Not Reportable 02/26/17 03:17 Anisocytosis Not Reportable 02/26/17 03:17 Microcytosis Not Reportable 02/26/17 03:17 Macrocytosis Not Reportable 02/26/17 03:17 Spherocytes Not Reportable 02/26/17 03:17 Pappenheimer Bodies Not Reportable 02/26/17 03:17 Sickle Cells Not Reportable 02/26/17 03:17 Target Cells Not Reportable 02/26/17 03:17 Tear Drop Cells Not Reportable 02/26/17 03:17 Ovalocytes Not Reportable 02/26/17 03:17 Helmet Cells Not Reportable 02/26/17 03:17 [place] Bodies Not Reportable 02/26/17 03:17 [place] Rings Not Reportable 02/26/17 03:17 Salome Cells Not Reportable 02/26/17 03:17 Bite Cells Not Reportable 02/26/17 03:17 Crenated Cell Not Reportable 02/26/17 03:17 Elliptocytes Not Reportable 02/26/17 03:17 Acanthocytes (Spur) Not Reportable 02/26/17 03:17 Rouleaux Not Reportable 02/26/17 03:17 Hemoglobin C Crystals Not Reportable 02/26/17 03:17 Schistocytes Not Reportable 02/26/17 03:17 Malaria parasites Not Reportable 02/26/17 03:17 Richard Bodies Not Reportable 02/26/17 03:17 Hem Pathologist Commnt No 02/26/17 03:17 PT 12.6 Sec. (12.2-14.9) 02/25/17 13:53 INR 0.95 (0.87-1.13) 02/25/17 13:53 APTT 25.2 Sec. (24.2-36.6) 02/25/17 13:53 Heparin Anti-Xa Level 0.21 U.I./ml (0.3-0.7) L 02/26/17 05:25 POC ABG pH 7.422 (7.35-7.45) 02/21/17 19:29 POC ABG pCO2 23.5 (35-45) L 02/21/17 19:29 POC ABG pO2 57 (80-105) L 02/21/17 19:29 POC ABG HCO3 15.3 02/21/17 19:29 POC ABG Total CO2 16 02/21/17 19:29 POC ABG O2 Sat 91 02/21/17 19:29 POC ABG Base Excess -9 02/21/17 19:29 FiO2 32 % 02/21/17 19:29 Sodium 133 mmol/L (137-145) L 02/28/17 04:41 Potassium 4.7 mmol/L (3.6-5.0) 02/28/17 04:41 Chloride 97.7 mmol/L (98-107) L 02/28/17 04:41 Carbon Dioxide 22 mmol/L (22-30) 02/28/17 04:41 Anion Gap 18 mmol/L 02/28/17 04:41 BUN 19 mg/dL (7-17) H 02/28/17 04:41 Creatinine 0.8 mg/dL (0.7-1.2) 02/28/17 04:41 Estimated GFR > 60 ml/min 02/28/17 04:41 BUN/Creatinine Ratio 23.75 % 02/28/17 04:41 Glucose 110 mg/dL (65-100) H 02/28/17 04:41 POC Glucose 125 (70-105) H 02/26/17 20:55 Hemoglobin A1c 5.9 % (4-6) 02/21/17 18:12 Lactic Acid 1.30 mmol/L (0.7-2.0) 02/23/17 20:35 Calcium 9.9 mg/dL (8.4-10.2) 02/28/17 04:41 Magnesium 2.30 mg/dL (1.7-2.3) 02/21/17 18:30 Total Bilirubin 0.30 mg/dL (0.1-1.2) 02/26/17 03:17 Direct Bilirubin < 0.2 mg/dL (0-0.2) 02/26/17 03:17 Indirect Bilirubin 0.2 mg/dL 02/23/17 20:50 AST 63 units/L (5-40) H 02/26/17 03:17 ALT 349 units/L (7-56) H 02/26/17 03:17 Alkaline Phosphatase 104 units/L (35-129) 02/26/17 03:17 Ammonia 60.0 umol/L (25-60) 02/21/17 18:30 Total Creatine Kinase 119 units/L (30-135) 02/21/17 19:36 Total Protein 7.1 g/dL (6.3-8.2) 02/26/17 03:17 Albumin 3.5 g/dL (3.9-5) L 02/26/17 03:17 Albumin/Globulin Ratio 1.0 % 02/26/17 03:17 Triglycerides 65 mg/dL (2-149) 02/22/17 03:39 Cholesterol 228 mg/dL (50-199) H 02/22/17 03:39 LDL Cholesterol Direct 156 mg/dL (50-130) H 02/22/17 03:39 HDL Cholesterol 59 mg/dL (40-59) 02/22/17 03:39 Cholesterol/HDL Ratio 3.86 % 02/22/17 03:39 TSH 4.100 mlU/mL (0.270-4.200) 02/21/17 18:30 Salicylates < 0.3 mg/dL (2.8-20.0) L 02/21/17 18:12 Acetaminophen < 15.0 ug/mL (10.0-30.0) 02/21/17 18:12 Plasma/Serum Alcohol < 0.01 gm% (0-0.07) 02/21/17 18:12 Hepatitis A IgM Ab Non-reactive (NonReactive) 02/22/17 17: Hep Bs Antigen Non-reactive (Negative) 02/22/17: Hep B Core IgM Ab Non-reactive (NonReactive) 02/22/17 17: Hepatitis C Antibody Non-reactive (NonReactive) 02/22/17 17:22
--- NOTE | 2017-02-28 15:56 | Progress Note ---
Subjective - Reason for Consult Consult date: 02/28/17 Reason for consult: Psychiatry Follow-up - Chief Complaint Chief complaint: "Hello" 61-year-old Afro-[place] female with a history of schizophrenia. Today patient is calm and cooperative during the assessment. She denies paranoia and hallucinations of any kind today. She was observed completing some of her ADL's when I arrived to her room. She was able to tell me the current and previous [place] President and her . Per the staff, no behavioral disturbances overnight. She denies SI/HI's. Patient stated that she does not want to return to her residence. Mental Status Exam - Vital signs Last Vital Signs Temp 97.8 F 02/28/17 13:01 Pulse 102 H 02/28/17 13:01 Resp 20 02/28/17 13:01 BP 130/95 02/28/17 13:01 Pulse Ox 98 02/28/17 13:01 - Exam Narrative exam: MSE: Appearance: calm, cooperative Behavior: regular eye contact Speech: regular rate and tone Mood: "well" Affect: congruent to mood Thought Process: circumstantial Thought Content: denies SI/HI's and AVH's Motor Activity: ambulatory Cognition: A/Ox 3 Insight: fair Judgment: fair Impression: Historial Dx: Schizophrenia. Today patient is calm and cooperative during the assessment. She denies SI/HI's and AVH's. Recommendations: Gather collateral to determine proper treatment. The patient is opposed to haldol. Will continue to follow patient until discharge. Assessment and Plan Impression: Historial Dx: Schizophrenia. Today patient is calm and cooperative during the assessment. She denies SI/HI's and AVH's. Recommendations: Continue Prolixin 5 mg PO HS for Schizophrenia. Discussed possible metabolic side effects of Prolixin with patient. Will continue to follow patient until discharge. Aurist involvement, patient may need placement.
[2017-02-28] MEDS: TYLENOL PO PRN (19:44)
[2017-02-28] MEDS: PROLIXIN HCL PO SCH (21:55)
[2017-02-28] MEDS: ZOCOR PO SCH (21:55)
[2017-03-01 05:35] LABS: Hematocrit 37.1 % (30.3-42.9); Hemoglobin 12.2 gm/dl (10.1-14.3)
[2017-03-01 06:01] LABS: Alanine Aminotransferase 127 units/L (7-56); Albumin 3.5 g/dL (3.9-5); Albumin/Globulin Ratio 1.1 %; Alkaline Phosphatase 94 units/L (35-129); Anion Gap 19 mmol/L; Blood Urea Nitrogen 18 mg/dL (7-17); Calcium 9.6 mg/dL (8.4-10.2); Carbon Dioxide 22 mmol/L (22-30); Glucose 103 mg/dL (65-100); Potassium 4.7 mmol/L (3.6-5.0); Sodium 136 mmol/L (137-145); Total Protein 6.8 g/dL (6.3-8.2)
--- NOTE | 2017-03-01 07:51 | Progress Note ---
Assessment and Plan - Patient Problems (1) MARIBEL (acute kidney injury) Current Visit: Yes Status: Acute Plan to address problem: MARIBEL likely hemodynamically mediated in the setting of volume depletion and ? sepsis. Renal function has improved and stable. Will follow labs and see her if needed. (2) Hyperkalemia Current Visit: Yes Status: Acute Plan to address problem: Mild hyperkalemia secondary to MARIBEL. Improved now. (3) Acidosis, lactic Current Visit: Yes Status: Acute Plan to address problem: Improved. (4) Encephalopathy Current Visit: Yes Status: Acute (5) Elevated liver enzymes Current Visit: Yes Status: Acute Plan to address problem: Improving. (6) Hyperglycemia Current Visit: Yes Status: Acute Subjective Date of service: 03/01/17 Principal diagnosis: paroxysmal atrial flutter with RVR; syncope; CMP Interval history: Patient is feeling better. Objective - Vital Signs Vital signs: Vital Signs - 12hr 02/28/17 03/01/17 03/01/17 19:52 00:12 02:12 Temperature 98.5 F 98.6 F Pulse Rate 81 Pulse Rate [ 84 99 H Apical] Pulse Rate [ 84 99 H Left Radial] Respiratory 20 18 Rate Blood Pressure 113/96 131/68 [Left Arm] O2 Sat by Pulse 100 100 Oximetry 03/01/17 03/01/17 02:16 04:20 Temperature 97.9 F Pulse Rate Pulse Rate [ 61 Apical] Pulse Rate [ 77 61 Left Radial] Respiratory 20 Rate Blood Pressure 130/73 [Left Arm] O2 Sat by Pulse 100 Oximetry - General Appearance General appearance: well-developed, well-nourished, appears stated age, obese, other (no distress) EENT: ATNC, PERRL, mucous membranes moist, hearing intact, vision intact Neck: supple Respiratory: Present: Clear to Ascultation Cardiology: regular, S1S2, no murmurs Gastrointestinal: normoactive bowel sounds, obese Integumentary: no rash Neurologic: no focal deficit, no asterixis, CN 3-12 intact Musculoskeletal: other (no edema) Psychiatric: mood/affect appropriate, cooperative - Lab 03/01/17 04:54 03/01/17 04:54 Most recent lab results Calcium 9.6 mg/dL (8.4-10.2) 03/01/17 04:54 Magnesium 2.30 mg/dL (1.7-2.3) 02/21/17 18:30
[2017-03-01] MEDS: PEPCID PO SCH ×2 (09:54→21:19)
[2017-03-01] MEDS: XARELTO PO SCH (09:54)
[2017-03-01] MEDS: ROCEPHIN/NS 2 GM/100 ML 2 GM/100 ML BAG IV SCH (09:54)
[2017-03-01] MEDS: ZESTRIL PO SCH (09:55)
[2017-03-01] MEDS: TOPROL XL PO SCH (09:56)
--- NOTE | 2017-03-01 13:31 | Progress Note ---
Subjective - Reason for Consult Consult date: 03/01/17 Reason for consult: Psychiatry Follow-up - Chief Complaint Chief complaint: "How are you" 61-year-old Afro-Syrian female with a history of schizophrenia. Today patient is calm and cooperative during the assessment. She stated that the staff has been nice and pleasant during her admission. She denies SI/HI's, AVH's, and being paranoid. She denies any sleep disturbance. She denies any side effects of her medications. Mental Status Exam - Vital signs Last Vital Signs Temp 98.2 F 03/01/17 11:38 Pulse 61 03/01/17 11:38 Resp 12 03/01/17 11:38 BP 148/91 03/01/17 11:38 Pulse Ox 99 03/01/17 11:38 - Exam Narrative exam: MSE: Appearance: calm, cooperative Behavior: regular eye contact Speech: regular rate and tone Mood: "pretty good" Affect: congruent to mood Thought Process: linear Thought Content: denies SI/HI's and AVH's Motor Activity: ambulatory Cognition: A/Ox 3 Insight: fair Judgment: fair Assessment and Plan Impression: Historial Dx: Schizophrenia. Today patient is calm and cooperative during the assessment. She denies SI/HI's and AVH's. Recommendations: Continue Prolixin 5 mg PO HS for Schizophrenia. Discussed possible metabolic side effects of Prolixin with patient. Will continue to follow patient until discharge. Culture Manager involvement, patient may need placement.
--- NOTE | 2017-03-01 14:29 | Progress Note ---
Assessment and Plan Assessment and plan: 61-year-old Afro-[place] female with a history of schizophrenia, Parkinson's and dementia presents to the emergency department after being found unresponsive at [facility]. The patient apparently left her personal senior living along with a walker and walked [facility]. The patient allegedly was ambulatory, jovial and social with the workers at [facility]. She ordered her food and ate and then all of a sudden about 1.5 hours ago she was found face down unresponsive at her table. She is now back to her jovial self and feels well Afib with RVR with cardiac arrest cardiology input appreciated -continue rate control meds, Toprol XL -was on heparin gtt, now transitioned to Xarelto -recent MPI in 07/27 was negative -EP input appreciated for lifevest prior to dc -Has appointment for follow-up at [facility] on 03/19/17 at 9:40 AM Chronic systolic CHF; NICM Continue MACEY and Beta fatimah Sepsis. Resolved. Follow-up blood, urine and sputum cultures. Cultures thus far negative. Etiology is secondary to sinusitis/mastoiditis. Has completed 7 day course of antibiotics. Acute sinusitis/mastoiditis. As above Acute Metobolic encephalopathy. Resolved. Acute CVA was ruled out, MR brain negative Lactic acidosis. Etiology secondary to sepsis, now resolve. Acute renal failure/Hyperkalemia. Resolved. Etiology likely secondary to acute kidney injury from sepsis and vasomotor nephropathy, nephropathy input appreciated, Now resolved. Elevated LFTs. Etiology likely secondary to ischemic hepatitis from cardiac arrest, now resolved Schizophrenia/Parkinsons dementia with psychosis. now stable and pleasant, will need SNF placement Prolixin was started by mental health DVT prophylaxis. fully anticoagulated. Unable to go to SNF due to lifevest, therefore CM is looking into personal care homes History Interval history: no events overnight, calm and cooperative Hospitalist Physical - Physical exam Narrative exam: General appearance: Present: no acute distress, well-nourished - EENT Eyes: Present: PERRL, EOM intact ENT: hearing intact, clear oral mucosa - Neck Neck: Present: supple, normal ROM - Respiratory Respiratory effort: normal Respiratory: bilateral: CTA - Cardiovascular Heart Sounds: Present: S1 & S2 - Extremities Extremities: no ischemia, No edema Peripheral Pulses: within normal limits - Abdominal General gastrointestinal: soft, non-tender, non-distended, normal bowel sounds - Integumentary Integumentary: Present: clear, warm, dry - Psychiatric Psychiatric: no intact judgment & insight, other (demented) - Neurologic Neurologic: CNII-XII intact, no focal deficits, moves all extremities - Constitutional Vitals: Temp Pulse Resp BP Pulse Ox 98.2 F 61 12 148/91 99 03/01/17 11:38 03/01/17 11:38 03/01/17 11:38 03/01/17 11:38 03/01/17 11:38 General appearance: Present: no acute distress Results - Labs CBC & Chem 7: 03/01/17 04:54 03/01/17 04:54 Labs: Laboratory Last Values WBC 10.8 K/mm3 (4.5-11.0) 02/26/17 03:17 RBC 4.50 M/mm3 (3.65-5.03) 02/26/17 03:17 Hgb 12.2 gm/dl (10.1-14.3) 03/01/17 04:54 Hct 37.1 % (30.3-42.9) 03/01/17 04:54 MCV 89 fl (79-97) 02/26/17 03:17 MCH 29 pg (28-32) 02/26/17 03:17 MCHC 33 % (30-34) 02/26/17 03:17 RDW 15.4 % (13.2-15.2) H 02/26/17 03:17 Plt Count 190 K/mm3 (140-440) 03/01/17 04:54 Lymph % (Auto) 45.1 % (13.4-35.0) H 02/25/17 05:12 Crisp % (Auto) 10.9 % (0.0-7.3) H 02/25/17 05:12 Eos % (Auto) 1.8 % (0.0-4.3) 02/25/17 05:12 Baso % (Auto) 0.8 % (0.0-1.8) 02/25/17 05:12 Lymph # Chipper Feeder 02/26/17 03:17 Crisp # 1.0 K/mm3 (0.0-0.8) H 02/25/17 05:12 Eos # 0.2 K/mm3 (0.0-0.4) 02/25/17 05:12 Baso # 0.1 K/mm3 (0.0-0.1) 02/25/17 05:12 Add Manual Diff Complete 02/26/17 03:17 Total Counted 100 02/26/17 03:17 Seg Neutrophils % 41.4 % (40.0-70.0) 02/25/17 05:12 Seg Neuts % (Manual) 49.0 % (40.0-70.0) 02/26/17 03:17 Band Neutrophils % 0 % 02/26/17 03:17 Lymphocytes % (Manual) 43.0 % (13.4-35.0) H 02/26/17 03:17 Reactive Lymphs % (Man) 0 % 02/26/17 03:17 Monocytes % (Manual) 8.0 % (0.0-7.3) H 02/26/17 03:17 Eosinophils % (Manual) 0 % (0.0-4.3) 02/26/17 03:17 Basophils % (Manual) 0 % (0.0-1.8) 02/26/17 03:17 Metamyelocytes % 0 % 02/26/17 03:17 Myelocytes % 0 % 02/26/17 03:17 Promyelocytes % 0 % 02/26/17 03:17 Blast Cells % 0 % 02/26/17 03:17 Nucleated RBC % Not Reportable 02/26/17 03:17 Seg Neutrophils # 3.7 K/mm3 (1.8-7.7) 02/25/17 05:12 Seg Neutrophils # Man 5.3 K/mm3 (1.8-7.7) 02/26/17 03:17 Band Neutrophils # 0.0 K/mm3 02/26/17 03:17 Lymphocytes # (Manual) 4.6 K/mm3 (1.2-5.4) 02/26/17 03:17 Abs React Lymphs (Man) 0.0 K/mm3 02/26/17 03:17 Monocytes # (Manual) 0.9 K/mm3 (0.0-0.8) H 02/26/17 03:17 Eosinophils # (Manual) 0.0 K/mm3 (0.0-0.4) 02/26/17 03:17 Basophils # (Manual) 0.0 K/mm3 (0.0-0.1) 02/26/17 03:17 Metamyelocytes # 0.0 K/mm3 02/26/17 03:17 Myelocytes # 0.0 K/mm3 02/26/17 03:17 Promyelocytes # 0.0 K/mm3 02/26/17 03:17 Blast Cells # 0.0 K/mm3 02/26/17 03:17 WBC Morphology Not Reportable 02/26/17 03:17 Hypersegmented Neuts Not Reportable 02/26/17 03:17 Hyposegmented Neuts Not Reportable 02/26/17 03:17 Hypogranular Neuts Not Reportable 02/26/17 03:17 Smudge Cells Not Reportable 02/26/17 03:17 Toxic Granulation Not Reportable 02/26/17 03:17 Toxic Vacuolation Not Reportable 02/26/17 03:17 Dohle Bodies Not Reportable 02/26/17 03:17 Pelger-Huet Anomaly Not Reportable 02/26/17 03:17 Zoran Rods Not Reportable 02/26/17 03:17 Platelet Estimate Consistent w auto 02/26/17 03:17 Clumped Platelets Not Reportable 02/26/17 03:17 Plt Clumps, EDTA Not Reportable 02/26/17 03:17 Large Platelets Not Reportable 02/26/17 03:17 Giant Platelets Not Reportable 02/26/17 03:17 Platelet Satelliting Not Reportable 02/26/17 03:17 Plt Morphology Comment Not Reportable 02/26/17 03:17 RBC Morphology Normal 02/26/17 03:17 Dimorphic RBCs Not Reportable 02/26/17 03:17 Polychromasia Not Reportable 02/26/17 03:17 Hypochromasia Not Reportable 02/26/17 03:17 Poikilocytosis Not Reportable 02/26/17 03:17 Anisocytosis Not Reportable 02/26/17 03:17 Microcytosis Not Reportable 02/26/17 03:17 Macrocytosis Not Reportable 02/26/17 03:17 Spherocytes Not Reportable 02/26/17 03:17 Pappenheimer Bodies Not Reportable 02/26/17 03:17 Sickle Cells Not Reportable 02/26/17 03:17 Target Cells Not Reportable 02/26/17 03:17 Tear Drop Cells Not Reportable 02/26/17 03:17 Ovalocytes Not Reportable 02/26/17 03:17 Helmet Cells Not Reportable 02/26/17 03:17 [place] Bodies Not Reportable 02/26/17 03:17 [employer] Rings Not Reportable 02/26/17 03:17 Salome Cells Not Reportable 02/26/17 03:17 Bite Cells Not Reportable 02/26/17 03:17 Crenated Cell Not Reportable 02/26/17 03:17 Elliptocytes Not Reportable 02/26/17 03:17 Acanthocytes (Spur) Not Reportable 02/26/17 03:17 Rouleaux Not Reportable 02/26/17 03:17 Hemoglobin C Crystals Not Reportable 02/26/17 03:17 Schistocytes Not Reportable 02/26/17 03:17 Malaria parasites Not Reportable 02/26/17 03:17 Richard Bodies Not Reportable 02/26/17 03:17 Hem Pathologist Commnt No 02/26/17 03:17 PT 12.6 Sec. (12.2-14.9) 02/25/17 13:53 INR 0.95 (0.87-1.13) 02/25/17 13:53 APTT 25.2 Sec. (24.2-36.6) 02/25/17 13:53 Heparin Anti-Xa Level 0.21 U.I./ml (0.3-0.7) L 02/26/17 05:25 POC ABG pH 7.422 (7.35-7.45) 02/21/17 19:29 POC ABG pCO2 23.5 (35-45) L 02/21/17 19:29 POC ABG pO2 57 (80-105) L 02/21/17 19:29 POC ABG HCO3 15.3 02/21/17 19:29 POC ABG Total CO2 16 02/21/17 19:29 POC ABG O2 Sat 91 02/21/17 19:29 POC ABG Base Excess -9 02/21/17 19:29 FiO2 32 % 02/21/17 19:29 Sodium 136 mmol/L (137-145) L 03/01/17 04:54 Potassium 4.7 mmol/L (3.6-5.0) 03/01/17 04:54 Chloride 100.0 mmol/L (98-107) 03/01/17 04:54 Carbon Dioxide 22 mmol/L (22-30) 03/01/17 04:54 Anion Gap 19 mmol/L 03/01/17 04:54 BUN 18 mg/dL (7-17) H 03/01/17 04:54 Creatinine 0.8 mg/dL (0.7-1.2) 03/01/17 04:54 Estimated GFR > 60 ml/min 03/01/17 04:54 BUN/Creatinine Ratio 22.50 % 03/01/17 04:54 Glucose 103 mg/dL (65-100) H 03/01/17 04:54 POC Glucose 125 (70-105) H 02/26/17 20:55 Hemoglobin A1c 5.9 % (4-6) 02/21/17 18:12 Lactic Acid 1.30 mmol/L (0.7-2.0) 02/23/17 20:35 Calcium 9.6 mg/dL (8.4-10.2) 03/01/17 04:54 Magnesium 2.30 mg/dL (1.7-2.3) 02/21/17 18:30 Total Bilirubin 0.30 mg/dL (0.1-1.2) 03/01/17 04:54 Direct Bilirubin < 0.2 mg/dL (0-0.2) 02/26/17 03:17 Indirect Bilirubin 0.2 mg/dL 02/23/17 20:50 AST 29 units/L (5-40) 03/01/17 04:54 ALT 127 units/L (7-56) H 03/01/17 04:54 Alkaline Phosphatase 94 units/L (35-129) 03/01/17 04:54 Ammonia 60.0 umol/L (25-60) 02/21/17 18:30 Total Creatine Kinase 119 units/L (30-135) 02/21/17 19:36 Total Protein 6.8 g/dL (6.3-8.2) 03/01/17 04:54 Albumin 3.5 g/dL (3.9-5) L 03/01/17 04:54 Albumin/Globulin Ratio 1.1 % 03/01/17 04:54 Triglycerides 65 mg/dL (2-149) 02/22/17 03:39 Cholesterol 228 mg/dL (50-199) H 02/22/17 03:39 LDL Cholesterol Direct 156 mg/dL (50-130) H 02/22/17 03:39 HDL Cholesterol 59 mg/dL (40-59) 02/22/17 03:39 Cholesterol/HDL Ratio 3.86 % 02/22/17 03:39 TSH 4.100 mlU/mL (0.270-4.200) 02/21/17 18:30 Salicylates < 0.3 mg/dL (2.8-20.0) L 02/21/17 18:12 Acetaminophen < 15.0 ug/mL (10.0-30.0) 02/21/17 18:12 Plasma/Serum Alcohol < 0.01 gm% (0-0.07) 02/21/17 18:12 Hepatitis A IgM Ab Non-reactive (NonReactive) 02/22/17 17:22 Hep Bs Antigen Non-reactive (Negative) 02/22/17 17: Hep B Core IgM Ab Non-reactive (NonReactive) 02/22/17 17:22 Hepatitis C Antibody Non-reactive (NonReactive) 02/22/17 17:22
[2017-03-01] MEDS: TYLENOL PO PRN (21:18)
[2017-03-01] MEDS: ZOCOR PO SCH (21:18)
[2017-03-01] MEDS: PROLIXIN HCL PO SCH (21:19)
[2017-03-02] MEDS: ZESTRIL PO SCH (10:10)
[2017-03-02] MEDS: TOPROL XL PO SCH (10:10)
[2017-03-02] MEDS: XARELTO PO SCH (10:10)
[2017-03-02] MEDS: ROCEPHIN/NS 2 GM/100 ML 2 GM/100 ML BAG IV SCH (10:11)
[2017-03-02] MEDS: PEPCID PO SCH (10:11)
--- NOTE | 2017-03-02 10:12 | Discharge Summary ---
Providers - Providers Date of Admission: 02/21/17 20:31 Attending physician: EVAN RUFF MD 02/21/17 21:37 Consult to Physician [CONS] Routine Consulting Provider: SUNG RODGERS Reason For Exam: AMS Place consult to:: neuro Notified:: johnathan Phone number called:: [phone] Was contact made?: No Time called:: 07:50 Comment:: left messasge 02/21/17 21:39 Occupational Therapy Evaluate and Treat [CONS] Routine Comment: Reason For Exam: Neuro deficits Physical Therapy Evaluation and Treat [CONS] Routine Comment: Reason For Exam: Neuro deficits 02/22/17 08:33 Consult to Physician [CONS] Routine Consulting Provider: RANDOLPH PULLIAM Reason For Exam: MARIBEL Place consult to:: HERACLIO Notified:: YES 02/22/17 08:46 Consult to Dietitian/Nutrition [CONS] Routine Physician Instructions: Reason For Exam: Reason for Consult: kashif score 14 02/23/17 09:45 Consult to Mental Health [CONS] Routine Reason For Exam: schizophrenia and SI Place consult to:: Mental Health Notified:: Jorge GARCIA Phone number called:: [phone] Was contact made?: Yes If yes, spoke with:: [facility] Time called:: 11:19 02/25/17 00:50 Consult to Cardiology [CONS] Urgent Consulting Provider: TORO RIZO Reason For Exam: afib with RVR Primary care physician: CAMERA [employer] ENGINEER Hospitalization Condition: Fair Hospital course: 61-year-old Afro-[place] female with a history of schizophrenia, Parkinson's and dementia presents to the emergency department after being found unresponsive at [facility]. The patient apparently left her personal shelter along with a walker and walked [facility]. The patient allegedly was ambulatory, jovial and social with the workers at [facility]. She ordered her food and ate and then all of a sudden about 1.5 hours ago she was found face down unresponsive at her table. She is now back to her jovial self and feels well Afib with RVR with cardiac arrest cardiology input appreciated -continue rate control meds, Toprol XL -was on heparin gtt, now transitioned to Xarelto -recent MPI in 07/27 was negative -EP input appreciated for lifevest prior to dc -Has appointment for follow-up at [place] [facility] on 03/19/17 at 9:40 AM Chronic systolic CHF; NICM Continue MACEY and Beta fatimah Sepsis. Resolved. Follow-up blood, urine and sputum cultures. Cultures thus far negative. Etiology is secondary to sinusitis/mastoiditis. Has completed 7 day course of antibiotics. Acute sinusitis/mastoiditis. As above Acute Metobolic encephalopathy. Resolved. Acute CVA was ruled out, MR brain negative Lactic acidosis. Etiology secondary to sepsis, now resolve. Acute renal failure/Hyperkalemia. Resolved. Etiology likely secondary to acute kidney injury from sepsis and vasomotor nephropathy, nephropathy input appreciated, Now resolved. Elevated LFTs. Etiology likely secondary to ischemic hepatitis from cardiac arrest, now resolved Schizophrenia/Parkinsons dementia with psychosis. now stable and pleasant, will need SNF placement [facility]ix[facility] DVT prophylaxis. fully anticoagulated. Unable to go to SNF due to lifevest, therefore CM is looking into personal care homes Disposition: DC/[place]-70 ANOTHER TYPE HLTHCARE Time spent for discharge: 32 minutes Core Measure Documentation - Palliative Care Palliative Care/ Comfort Measures: Not Applicable - Core Measures Any of the following diagnoses?: heart failure - Heart Failure Discharge Requirements MACEY/ARB for LVSD if EF <40%: Yes Beta fatimah at discharge: Yes Exam - Physical Exam Narrative exam: General appearance: Present: no acute distress, well-nourished - EENT Eyes: Present: PERRL, EOM intact ENT: hearing intact, clear oral mucosa - Neck Neck: Present: supple, normal ROM - Respiratory Respiratory effort: normal Respiratory: bilateral: CTA - Cardiovascular Heart Sounds: Present: S1 & S2 - Extremities Extremities: no ischemia, No edema Peripheral Pulses: within normal limits - Abdominal General gastrointestinal: soft, non-tender, non-distended, normal bowel sounds - Integumentary Integumentary: Present: clear, warm, dry - Psychiatric Psychiatric: no intact judgment & insight, other (demented) - Neurologic Neurologic: CNII-XII intact, no focal deficits, moves all extremities - Constitutional Vitals: Temp Pulse Resp BP Pulse Ox 98.2 F 60 20 168/84 98 03/02/17 07:45 03/02/17 07:45 03/02/17 07:45 03/02/17 07:45 03/02/17 07:45 Plan Follow up with: PRIMARY CARE, [Primary Care Provider] - 3-5 Days Prescriptions: fluPHENAZine HCL [Prolixin] 5 mg PO HS #30 tablet Lisinopril [Zestril TAB] 10 mg PO QDAY #30 tablet oxyCODONE /ACETAMINOPHEN [Percocet 5/325 mg] 1 tab PO Q6H PRN #7 tablet PRN Reason: Pain, Moderate (4-6) Rivaroxaban [Xarelto] 20 mg PO QDAY #30 tab
[2017-03-02 12:39] VITALS: BP 165/77
== END 2017-03-02 13:42 | disposition other institution (70) | DRG 871 ==
LOC: ED 18:00 → 4A 20:31
PROVIDERS: ADMIT Internal Medicine; ATTEND Internal Medicine
PROC: 4A033R1 Measurement of Arterial Saturation, Peripheral, Percutaneous Approach (ICD-10-PCS; principal; 2017-02-21)
DX: A41.9 Sepsis, unspecified organism (principal); N17.0 Acute kidney failure with tubular necrosis; I46.9 Cardiac arrest, cause unspecified; G93.41 Metabolic encephalopathy; R73.9 Hyperglycemia, unspecified; F20.9 Schizophrenia, unspecified; I48.91 Unspecified atrial fibrillation; I50.22 Chronic systolic (congestive) heart failure; J01.90 Acute sinusitis, unspecified; H70.90 Unspecified mastoiditis, unspecified ear; K75.9 Inflammatory liver disease, unspecified; G20 Parkinson's disease; F02.81 Dementia in other diseases classified elsewhere, unspecified severity, with behavioral disturbance; E87.5 Hyperkalemia; Z82.49 Family history of ischemic heart disease and other diseases of the circulatory system; Z90.11 Acquired absence of right breast and nipple; Z88.5 Allergy status to narcotic agent; Z79.899 Other long term (current) drug therapy
CPT/HCPCS: 36415; 70450; 70544; 70551; 71010; 76770; 80048; 80053; 80061; 80074; 80320; 82140; 82550; 82803; 82962; 83036; 83735; 84443; 85007; 85014; 85018; 85025; 85049; 85520; 85610; 85730; 87040; 93005; 93010; 93306; 93880; 94760; 96374; 96375; 99285; G0480; J0696; J1170; J1644; J1815; J7030; J7042